=== PATIENT | male | born 1960 | race Caucasian/White ===

== ENCOUNTER 2017-11-08 22:56 | Emergency (ER) | payer OTHER ==
[~2017-11-08 22:56] MED LIST: AMLODIPINE BESY10 M1 PO; ASPIRIN EC325 M2 PO; DILTIAZEM ER120 M2 PO; ELIQUIS5 M1 PO; LISINOPRIL20 M1 PO; LISINOPRIL40 M1 PO; METOPROLOL SUC100 M2 PO; PROPAFENONE HC325 M1 PO
--- NOTE | 2017-11-08 23:37 | ED DYSPNEA/ASTHMA COMPLAINT ---
History of Present Illness General Chief Complaint: Chest Pain Stated Complaint: CHEST PAIN Source: patient, old records, Exam Limitations: no limitations Vital Signs & Intake/Output Vital Signs & Intake/Output Vital Signs Date Time Temp Pulse Resp B/P B/P Pulse O2 O2 Flow FiO2 Mean Ox Delivery Rate 11/09 0425 97.0 69 18 103/70 97 Room Air 11/09 0130 98.0 86 22 125/63 97 Room Air 11/09 0010 95 11/08 2349 97.9 80 22 110/69 97 Room Air 11/08 2302 97.2 88 22 130/82 96 ED Intake and Output 11/09 0000 11/08 1200 Intake Total 0 Output Total Balance 0 Intake, Oral 0 Patient 175 lb Weight Allergies Coded Allergies: NO KNOWN ALLERGIES (08/02/17) Reconcile Medications Albuterol Sulfate (Proair Hfa) 90 MCG HFA.AER.AD 2 INH INH Q6P PRN copd Apixaban (Eliquis) 5 MG TABLET 1 TAB PO BID BLOOD THINNER (Reported) Aspirin (Ecotrin*) 325 MG TABLET.DR 1 TAB PO DAILY HEART HEALTH (Reported) Diltiazem Cd (Diltiazem ER) 120 MG CAP.ER.DEG 120 MG PO DAILY Atrial Fibrillation . Lisinopril 20 MG TABLET 20 MG PO DAILY Hypertension . Metoprolol Succinate 100 MG TAB.ER.24H 1 TAB PO DAILY HIGH BLOOD PRESSURE ( Reported) Prednisone (Deltasone) 20 MG TABLET 3 TAB PO DAILY WHEEZING/copd BEGIN TOMORROW Triage Note: PER HAS HAD A COUGH AND CONGESTION X 24-48 HRS, STARTED WITH CP 30 MINUTES WOKE FROM SLEEP Triage Nurses Notes Reviewed? yes HPI: Patient presents for evaluation of dyspnea and chest congestion that began 2-3 days ago. He states that tonight symptoms became worse and so severe that he awoke from sleep short of breath. Denies any prior episodes like this. Although he did have symptoms consistent with a stomach virus on Wednesday for about 6-8 hours he currently denies fever, sinus congestion, nasal congestion, coughing, abdominal pain, vomiting, diarrhea or leg swelling/pain. Although he does not characterize chest pain he states that occasionally his chest feels heavy. There are number of ill contacts in the family recently. Patient denies cigarette smoking but does drink daily alcohol consisting of a 6 pack Past History Travel History Traveled to [place] past 21 day No Medical History Any Pertinent Medical History? 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 MOTHER (COPD and HTN). Hx Contributory? No Review of Systems Review of Systems Constitutional: Reports: no symptoms. EENTM: Reports: no symptoms. Respiratory: Reports: see HPI. Cardiovascular: Reports: no symptoms. GI: Reports: no symptoms. Genitourinary: Reports: no symptoms. Musculoskeletal: Reports: no symptoms. Skin: Reports: no symptoms. Neurological/Psychological: Reports: no symptoms. Hematologic/Endocrine: Reports: no symptoms. Immunologic/Allergic: Reports: no symptoms. All Other Systems: Reviewed and Negative Physical Exam Physical Exam Respiratory: SEE BELOW Comments: Gen.: Well-nourished, well-developed, mild respiratory distress. Thin. Head: Normocephalic, atraumatic. Eyes: Normal inspection bilaterally Ears: Normal inspection bilaterally Nose: Normal inspection, mild red discoloration Throat/mouth : Moist mucosa Neck: Supple, full range of motion, no goiter Heart: IRRegular rate and rhythm, no murmurs rubs or gallops Lungs: Clear to auscultation bilaterally with diminished air entry bilaterally Chest: Nontender Back: Normal range of motion Abdomen: Protuberant, nontender, no hepatomegaly normal bowel sounds Extremities: Normal range of motion grossly, equal radial pulses, no cyanosis clubbing or edema, calves nontender Neurologic: Cranial nerves grossly intact, speech is clear Skin: warm and dry Psychiatric: Calm, cooperative, no apparent delusions or hallucinations Core Measures ACS in differential dx? No CVA/TIA Diagnosis No Sepsis Present: No Sepsis Focused Exam Completed? No Progress Differential Diagnosis: asthma, AMI, CHF, COPD, pneumonia, unstable angina Plan of Care: Orders Procedure Date/time Status TROPONIN LEVEL 11/09 0345 Complete EKG 11/09 0345 Active Telemetry/[facility] And Hearing [facility] Director 01/01 2336 Active TROPONIN LEVEL 11/08 2335 Complete PROTHROMBIN TIME 11/08 2335 Complete MAGNESIUM 11/08 2335 Complete COMPREHENSIVE METABOLIC PANEL 11/08 2335 Complete CBC WITHOUT DIFFERENTIAL 11/08 2335 Complete B-TYPE NATRIURETIC PEP (BNP) 11/08 2335 Complete EKG 11/08 2256 Active Laboratory Tests 11/09/17 0405: Troponin I < 0.01 11/08/17 2345: Anion Gap 15, Estimated GFR > 60, BUN/Creatinine Ratio 12.9, Glucose 90, Calcium 8.8, Magnesium 1.3 L, Total Bilirubin 0.7, AST 37, ALT 45, Alkaline Phosphatase 74, Troponin I < 0.01, Oau-T-Kghzdefdqsw Pept 1490 H, Total Protein 6.6, Albumin 3.8, Globulin 2.8, Albumin/Globulin Ratio 1.4, PT 12.3, INR 1.17, CBC w Diff NO MAN DIFF REQ, RBC 4.70, MCV 95.7 H, MCH 31.7 H, RDW 17.6 H, MPV 8.7, Gran % 63.8, Lymphocytes % 19.8 L, Monocytes % 13.2 H, Eosinophils % 2.1, Basophils % 1.1, Absolute Granulocytes 3.4, Absolute Lymphocytes 1.1 L, Absolute Monocytes 0.7 H, Absolute Eosinophils 0.1, Absolute Basophils 0.1, PUBS MCHC 33.2 Diagnostic Imaging: Discussed w/RAD: Radiology Read. CXR Impression: PATIENT: QUENTIN MEDINA PRESENT AGE: 57 PATIENT ACCOUNT NO: [id number] : 58 LOCATION: [facility] ORDERING PHYSICIAN: Gopi Keenan MD SERVICE DATE: 11/08/17 EXAM TYPE: RAD - XRY-PORTABLE CHEST XRAY EXAMINATION: XR PORTABLE CHEST CLINICAL INFORMATION: Dyspnea, chest congestion. COMPARISON: Chest radiographs dated 08/02/2017. Rib radiographs dated 08/03/2017. TECHNIQUE: Portable frontal view of the chest was obtained. FINDINGS: No focal consolidation or effusion. Cardiomediastinal silhouette is within normal limits for technique. No pneumothorax. No acute osseous abnormalities. IMPRESSION: No focal consolidation or effusion. 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 <Electronically signed in Other Vendor System> SIGNED BY: Evan Mckeon MD 11/09/1735 Initial ED EKG: rate (96), AFIB, nonspecific ST T wave chg Prior EKG: unchanged Repeat EKG: unchanged Rhythm Strip: atrial fibrillation Comments: 11/09/2017 12:52:35 AM I have updated Quentin on his test results. Despite the nebulizer treatment he states his chest feels exactly the same as it did when he first arrived. His air entry is perhaps slightly improved he has no wheezes rales or rhonchi. Heart rate ranges from 80s to 90s on the monitor with an underlying atrial fibrillation as the rhythm. Given his persistent chest pain I will repeat an EKG and troponin and order a second albuterol and Solu-Medrol. 11/09/2017 5:17:22 AM I have updated Quentin on his test results. He feels well and has no complaint at this time. He wishes to return home. Departure Departure Disposition: HOME OR SELF CARE Condition: Stable Clinical Impression Primary Impression: COPD exacerbation Referrals: Florentino Wagoner MD (PCP/Family) Additional Instructions: Albuterol inhaler as prescribed for any trouble breathing or chest tightness. Prednisone as prescribed. Follow up with your primary care physician tomorrow for reevaluation. Rest, no exertion. Return if any concerns or sudden worsening. Please note that there might be incidental findings in your evaluation that are unrelated to the current emergency department visit. Please notify your primary care doctor about this emergency department visit in order to obtain and review all of the testing performed so that these incidental findings can be monitored as needed. If you had an x-ray performed, please understand that some fractures may not be seen on the initial set of x-rays. If your symptoms persist you might need a repeat set of x-rays to check for such a fracture. If you had a laceration evaluated, please understand that foreign bodies such as glass or wood may not be visible to the naked eye or on plain x-rays. If the wound becomes red, swollen, increasingly more painful or if there is any drainage from the wound, please have it reevaluated by a physician for the possibility of a retained foreign body. If you're unable to follow up as outlined in the discharge instructions please return to the emergency department. Thank you for choosing the [facility] Department for your care. It was a pleasure to serve you today. Gopi Keenan M.D. [facility] Departure Forms: Customer Survey General Discharge Information Prescriptions: Current Visit Scripts Albuterol Sulfate (Proair Hfa) 2 INH INH Q6P PRN copd #1 INHAL Prednisone (Deltasone) 3 TAB PO DAILY #12 TAB BEGIN TOMORROW Critical Care Note Critical Care Note Critical Care Time: 30-74 min
[2017-11-09 00:15] LABS: ABSOLUTE BASOPHIL COUNT 0.1 /CUMM (0.0-0.2); ABSOLUTE EOSINOPHIL COUNT 0.1 /CUMM (0.0-0.7); ABSOLUTE GRANULOCYTE CT 3.4 /CUMM (1.4-6.5); ABSOLUTE LYMPH COUNT 1.1 /CUMM (1.2-3.4); ABSOLUTE MONOCYTE COUNT 0.7 /CUMM (0.10-0.60); BASOPHIL % 1.1 % (0.0-2.0); EOSINOPHIL % 2.1 % (0-5); GRANULOCYTE % 63.8 % (42.2-75.2); MEAN CORPUSCULAR HGB 31.7 PG (27.0-31.0); MEAN CORPUSCULAR HGB CONC 33.2 G/DL (33.0-37.0); MEAN CORPUSCULAR VOLUME 95.7 FL (80.0-94.0); MEAN PLATELET VOLUME 8.7 FL (7.4-10.4); PLATELET COUNT 240 /CUMM (130-400); RBC DISTRIBUTION WIDTH 17.6 % (11.5-14.5); WHITE BLOOD CELL COUNT 5.3 /CUMM (4.8-10.8)
[2017-11-09 00:18] LABS: PT 12.3 SEC (9.4-12.5)
--- NOTE | 2017-11-09 00:36 | RADIOLOGY REPORT ---
EXAMINATION: XR PORTABLE CHEST CLINICAL INFORMATION: Dyspnea, chest congestion. COMPARISON: Chest radiographs dated 08/02/2017. Rib radiographs dated 08/03/2017. TECHNIQUE: Portable frontal view of the chest was obtained. FINDINGS: No focal consolidation or effusion. Cardiomediastinal silhouette is within normal limits for technique. No pneumothorax. No acute osseous abnormalities. IMPRESSION: No focal consolidation or effusion.
[2017-11-09 04:25] VITALS: BP 103/70
[2017-11-09] MEDS ORDERED: PROAIR HFA8.5 GM INH (05:20)
[2017-11-09] MEDS ORDERED: DELTASONE20 MG PO (05:20)
== END 2017-11-09 05:32 ==
LOC: ERH 22:56
PROVIDERS: Emergency Medicine
DX: J44.1 Chronic obstructive pulmonary disease with (acute) exacerbation (principal); R07.89 Other chest pain
CPT/HCPCS: 1263; 71045; 93005; 93010; 96374; J2930

== ENCOUNTER 2018-04-21 15:10 | Inpatient (IN) | payer OTHER ==
[~2018-04-21] VITALS: Ht 193 cm; Wt 84.8 kg
[~2018-04-21 15:10] MED LIST changes: +DELTASONE20 MG PO; +PROAIR HFA8.5 GM INH
[2018-04-21 15:27] VITALS: BP 149/100
[2018-04-21] MEDS ORDERED: DAILY MULTIPLE1 EACH PO (15:32)
[2018-04-21] MEDS ORDERED: SYMBICORT 16010.2 GM INH (15:33)
--- NOTE | 2018-04-21 15:33 | ED CARDIAC/CP/PALPITATIONS ---
See Addendum History of Present Illness General Chief Complaint: Chest Pain Stated Complaint: RAPID HEART RATE Source: patient, old records, PCP Exam Limitations: no limitations Vital Signs & Intake/Output Vital Signs & Intake/Output Vital Signs Date Time Temp Pulse Resp B/P B/P Pulse O2 O2 Flow FiO2 Mean Ox Delivery Rate 04/21 1704 114 18 137/95 97 Room Air 04/21 1615 108 116/82 04/21 1613 128 130/96 97 Room Air 04/21 1541 Room Air 04/21 1537 98.4 108 22 116/82 98 Room Air 04/21 1532 180 149/100 04/21 1530 180 22 149/101 98 Room Air 04/21 1527 180 149/100 Allergies Coded Allergies: No Known Allergies (04/21/18) Reconcile Medications Apixaban (Eliquis) 5 MG TABLET 1 TAB PO BID BLOOD THINNER (Reported) Aspirin (Ecotrin*) 325 MG TABLET.DR 1 TAB PO DAILY HEART HEALTH (Reported) Budesonide/Formoterol Fumarate (Symbicort 160-4.5 Mcg Inhaler) 160 MCG-4.5 MCG/ ACTUATION HFA.AER.AD 2 PUF INH BID BREATHING PROBLEMS (Reported) Diltiazem Cd (Diltiazem ER) 120 MG CAP.ER.DEG 120 MG PO DAILY Atrial Fibrillation . Lisinopril 20 MG TABLET 20 MG PO DAILY Hypertension . Metoprolol Succinate 100 MG TAB.ER.24H 1 TAB PO DAILY HIGH BLOOD PRESSURE ( Reported) Multivitamin (Daily Multiple Vitamin) 1 EACH TABLET 1 TAB PO DAILY VITAMIN SUPPORT (Reported) Triage Note: PT BROUGHT TO ED FROM DR. WHITE'S OFFICE (CARDIOLOGY) FOR SYMPTOMS OF "FEELING SHAKEY AND I FEEL LIKE I'M JUMPING OUT OF MY SKIN." PT NOTED TO BE VERY ANXIOUS, SHAKEY IN TRIAGE. PER EKG, RAPID AFIB WITH RATE 191. DENIES CHEST PAIN, +SOB. PER DR. WHITE'S OFFICE, HEAVY ALCOHOL USE. LAST DRINK YESTERDAY. REPORTS APPROX 6 BEERS A DAY Triage Nurses Notes Reviewed? yes HPI: Shortly after waking this morning patient felt like his heart rate began to race. Patient states that he has been compliant with his medications. Patient had a follow-up appointment with with Dr. Siegel today so he went to see him and he was found to be in A. fib with RVR at 180. Patient states that he does drink daily and his last drink was last night. Patient denies any history of withdrawal seizures. Patient states that usually when this time he would've had a beer. Patient denies any chest pain or shortness of breath. There is no lightheadedness. Patient was sent to the emergency department for evaluation. Past History Travel History Traveled to [place] past 21 day No Medical History Any Pertinent Medical History? 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 MOTHER (COPD and HTN). Hx Contributory? No Review of Systems Review of Systems Constitutional: Reports: no symptoms. EENTM: Reports: no symptoms. Respiratory: Reports: no symptoms. Cardiovascular: Reports: see HPI, palpitations. GI: Reports: no symptoms. Genitourinary: Reports: no symptoms. Musculoskeletal: Reports: no symptoms. Skin: Reports: no symptoms. Neurological/Psychological: Reports: no symptoms. Hematologic/Endocrine: Reports: no symptoms. Immunologic/Allergic: Reports: no symptoms. All Other Systems: Reviewed and Negative Physical Exam Physical Exam General Appearance: well developed/nourished, alert, awake, anxious Head: atraumatic, normal appearance Eyes: Bilateral: PERRL, EOMI. Ears, Nose, Throat: normal pharynx, normal ENT inspection, hearing grossly normal Neck: normal inspection, supple, full range of motion Respiratory: normal breath sounds, chest non-tender, no respiratory distress, lungs clear Cardiovascular: normal peripheral pulses, tachycardia, irregularly irregular Gastrointestinal: normal bowel sounds, soft, non-tender, no organomegaly Back: normal inspection, normal range of motion Extremities: normal inspection, normal capillary refill, normal range of motion, no edema Neurologic/Psych: no motor/sensory deficits, awake, alert, oriented x 3, normal gait, normal mood/affect Skin: intact, normal color, warm/dry Lymphatic: no anterior cervical brigid Core Measures ACS in differential dx? Yes CVA/TIA Diagnosis No Sepsis Present: No Sepsis Focused Exam Completed? No Progress Differential Diagnosis: AMI, atrial fibrillation, hyperthyroid, ALCOHOL WITHDRAWAL Plan of Care: Orders Procedure Date/time Status Heart Healthy Diet 04/22 B Active ED Holding Orders 04/21 1726 Active Admit to inpatient 04/21 1726 Active Vital Signs 04/21 1726 Active Code Status 04/21 1726 Active Add-on Test (ER Only) 04/21 1548 Active ETHANOL 04/21 1530 Complete CIWA 04/21 1526 Active TSH REFLEX 04/21 1526 Complete TROPONIN LEVEL 04/21 1526 Complete PHOSPHORUS 04/21 1526 Complete MAGNESIUM 04/21 1526 Complete CBC WITHOUT DIFFERENTIAL 04/21 1526 Complete BASIC METABOLIC PANEL 04/21 1526 Complete EKG 04/21 1512 Active Current Medications Sig/Jay Start time Last Medication Dose Stop Time Status Admin Diltiazem HCl 10 MG ONCE ONE 04/21 1715 UNVr (Cardizem) 04/21 1716 Diltiazem HCl 125 MG Q12H 04/21 1715 UNVr (Cardizem DRIP) Dextrose/Water 100 ML (D5W) Magnesium Sulfate 2 GM ONCE ONE 04/21 1615 AC 04/21 (Mag Sulfate in D5) 04/21 2014 165 Dextrose/Water 100 ML (D5W) Laboratory Tests 04/21/18 1530: Anion Gap 13, Estimated GFR > 60, BUN/Creatinine Ratio 6.3 L, Glucose 110 H, Calcium 9.7, Phosphorus 3.7, Magnesium 1.2 L, Troponin I < 0.01, TSH &T3 &Free T4 Intrp 2.640, CBC w Diff NO MAN DIFF REQ, RBC 4.55 L, MCV 98.3 H, MCH 34.1 H, MCHC 34.7, RDW 14.1, MPV 9.0, Gran % 69.1, Lymphocytes % 19.6 L, Monocytes % 9.7 H, Eosinophils % 1.1, Basophils % 0.5, Absolute Granulocytes 3.9, Absolute Lymphocytes 1.1 L, Absolute Monocytes 0.5, Absolute Eosinophils 0.1, Absolute Basophils 0, Serum Alcohol 12.0 Diagnostic Imaging: Viewed by Me: Radiology Read. Discussed w/RAD: Radiology Read. CXR Impression: SEE ABOVE Initial ED EKG: AFIB (WITH RVR), nonspecific ST T wave chg Prior EKG: changed Rhythm Strip: atrial fibrillation Comments: PATIENT: QUENTIN MEDINA PRESENT AGE: 57 PATIENT ACCOUNT NO: [id number] : 58 LOCATION: [facility] ORDERING PHYSICIAN: Ramandeep BERNAL SERVICE DATE: 04/21/18 EXAM TYPE: RAD - XRY-CHEST XRAY, TWO VIEWS EXAMINATION: XR CHEST CLINICAL INFORMATION: A. Fib COMPARISON: 11/08/2017 TECHNIQUE: 2 views of the chest were obtained. FINDINGS: No focal consolidation, pulmonary edema, or pleural effusion. Stable cardiomediastinal silhouette. IMPRESSION: Unremarkable examination. 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 <Electronically signed in Other Vendor System> SIGNED BY: Tony Chan MD 1634 Departure Departure Disposition: STILL A PATIENT Condition: Guarded Clinical Impression Primary Impression: Atrial fibrillation with RVR Referrals: Florentino Wagoner MD (PCP/Family) Departure Forms: Customer Survey General Discharge Information Admission Note Spoke With: Mariana Celestin MD Documentation of Exam: Documentation of any treatments & extenuating circumstances including Concerns Regarding Discharge (functional status, medication knowledge or non-compliance, living conditions, etc.) that warrant an admission rather than observation: [ ADMIT TO TELE, SADI GOMES, CARDIOLOGY CONSULT, FOLLOW CIWA CLOSELY, MAY REQUIRE ATIVAN] Critical Care Note Critical Care Note Critical Care Time: mins: (90 MIN)
[2018-04-21 15:45] LABS: ABSOLUTE BASOPHIL COUNT 0 /CUMM (0.0-0.2); ABSOLUTE EOSINOPHIL COUNT 0.1 /CUMM (0.0-0.7); ABSOLUTE GRANULOCYTE CT 3.9 /CUMM (1.4-6.5); ABSOLUTE LYMPH COUNT 1.1 /CUMM (1.2-3.4); ABSOLUTE MONOCYTE COUNT 0.5 /CUMM (0.10-0.60); BASOPHIL % 0.5 % (0.0-2.0); EOSINOPHIL % 1.1 % (0-5); GRANULOCYTE % 69.1 % (42.2-75.2); HEMATOCRIT 44.8 % (42-52); MEAN CORPUSCULAR HGB 34.1 PG (27.0-31.0); MEAN CORPUSCULAR HGB CONC 34.7 G/DL (33.0-37.0); MEAN CORPUSCULAR VOLUME 98.3 FL (80.0-94.0); PLATELET COUNT 162 /CUMM (130-400); RBC DISTRIBUTION WIDTH 14.1 % (11.5-14.5); RED BLOOD CELL CT 4.55 /CUMM (4.70-6.10); WHITE BLOOD CELL COUNT 5.6 /CUMM (4.8-10.8)
--- NOTE | 2018-04-21 16:35 | RADIOLOGY REPORT ---
EXAMINATION: XR CHEST CLINICAL INFORMATION: A. Fib COMPARISON: 11/08/2017 TECHNIQUE: 2 views of the chest were obtained. FINDINGS: No focal consolidation, pulmonary edema, or pleural effusion. Stable cardiomediastinal silhouette. IMPRESSION: Unremarkable examination.
--- NOTE | 2018-04-21 16:45 | Cons- Cardiology ---
Fermín Siegel MDneth 04/21/18 1635: General Information and HPI Consulting Request Date of Consult: 04/21/18 Requested By: ER physician/hospitalist Reason for Consult: Rapid atrial fibrillation Source of Information: patient, old records Exam Limitations: poor historian History of Present Illness: Benny Renee is a 57-year-old male with a history of hypertension, reasonably well controlled on 3 medications. He also has had 2 episodes of atrial fibrillation, both requiring cardioversion, the first in 04/2010 and the second in 03/2012. It was thought that his paroxysmal atrial fibrillation may have been related to excess alcohol intake, as he was a fairly heavy drinker. He has subsequently been able to cut down on his drinking and did not have any problems for a couple of years. I had not seen Benny for about 2 years, but he has continued to take the same medical regimen with amlodipine, lisinopril, metoprolol, and propafenone. He has been followed up regularly by Dr. Wagoner. However, at his visit to Dr. Wagoner in September 2016 he was noted to be in atrial fibrillation on an EKG at a rate of about 100. I subsequently saw him in the office and confirmed that he was in atrial fibrillation and his rate was reasonable. I recommended putting him on Eliquis and checking him in a month. He was totally unaware of his atrial fibrillation.. He did have his echo on 10/15/16 which showed normal LV function with mild left atrial dilatation and mild thickening of his mitral leaflets. Benny was cardioverted on 11/05/2016. He did convert to sinus rhythm but at his next office visit was back in atrial fibrillation. At that time, we decided that since he was totally asymptomatic we would leave him in atrial fibrillation and just use rate control strategy. At his visit in 06/2017 , Benny's rate was a little fast and I adjusted his medications. Subsequently he ended up being admitted to the hospital on 08/02/17 with rapid atrial fibrillation, and also alcohol withdrawal. He was in the hospital until 08/10/2017, mainly with withdrawal symptoms. We adjusted his medications for better rate control. At his office visit in August 2017, Benny was doing well. He claimed he was not drinking and he looked pretty good. His heart rate was in the 70s. I last saw him in the office on 12/20/2017. At that time he was looking pretty good, claimed not to be drinking much and was in rate controlled atrial fibrillation with normal blood pressure. Benny came to see me today for follow-up office visit. He came in looking very shaky and was extremely tachycardic with heart rate around 180 with atrial fibrillation. His blood pressure was normal and his pulse ox was normal. He had lost about 15 pounds. He claims to be drinking about 6 beers a day and had his last drink last night. Based on his appearance and EKG I sent him directly to the emergency department. He does claim to be compliant with his medications. So far in the ED he is very tachycardic and has been given Cardizem to slow his heart rate. His lab work is largely unremarkable except for low Mg. He has a low alcohol level consistent with not drinking today but drinking yesterday. Allergies/Medications Allergies: Coded Allergies: No Known Allergies (04/21/18) Home Med List: Apixaban (Eliquis) 5 MG TABLET 1 TAB PO BID BLOOD THINNER (Reported) Aspirin (Ecotrin*) 325 MG TABLET.DR 1 TAB PO DAILY HEART HEALTH (Reported) Budesonide/Formoterol Fumarate (Symbicort 160-4.5 Mcg Inhaler) 160 MCG-4.5 MCG/ ACTUATION HFA.AER.AD 2 PUF INH BID BREATHING PROBLEMS (Reported) Diltiazem Cd (Diltiazem ER) 120 MG CAP.ER.DEG 120 MG PO DAILY Atrial Fibrillation . Lisinopril 20 MG TABLET 20 MG PO DAILY Hypertension . Metoprolol Succinate 100 MG TAB.ER.24H 1 TAB PO DAILY HIGH BLOOD PRESSURE ( Reported) Multivitamin (Daily Multiple Vitamin) 1 EACH TABLET 1 TAB PO DAILY VITAMIN SUPPORT (Reported) Current Medications: Current Medications Sig/Jay Start time Last Medication Dose Route Stop Time Status Admin Diltiazem HCl 10 MG ONCE ONE 04/21 171 UNVr IV PUSH 04/21 171 Diltiazem HCl 125 MG Q12H 04/21 171 UNVr Dextrose/Water 100 ML IV Diltiazem HCl 10 MG ONCE ONE 04/21 1615 DC 04/21 IV PUSH 04/21 1616 1615 Diltiazem HCl 0 .STK-MED ONE 04/21 1537 DC .ROUTE Diltiazem HCl 10 MG ONCE ONE 04/21 1530 DC 04/21 IV 04/21 1531 1532 Magnesium Sulfate 2 GM ONCE ONE 04/21 1615 AC 04/21 Dextrose/Water 100 ML IV 04/21 2014 165 Sodium Chloride 1,000 ML BOLUS ONE 04/21 1530 DC 04/21 IV 04/21 1629 1532 Review of Systems Review of Systems: His main complaint is just feeling "shaky" Past History Travel History Traveled to [place] past 21 day No Medical History Neurological: NONE EENT: NONE Cardiovascular: AFIB, hypertension, CARDIOVERSION Respiratory: COPD Gastrointestinal: NONE Hepatic: NONE Renal: NONE Musculoskeletal: NONE Psychiatric: ETOH Endocrine: NONE Blood Disorders: NONE Cancer(s): NONE SUBSTANCE ABUSE 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 MOTHER (COPD and HTN). Psychosocial History Who Do You Live With? spouse Services at Home: None Primary Language: Mexican ETOH Use: heavy use Illicit Drug Use: denies illicit drug use Functional Ability ADLs Independent: dressing, eating, toileting, bathing. Ambulation: independent IADLs Independent: shopping, housework, finances, food prep, telephone, transportation , medication admin. Exam & Diagnostic Data Vital Signs and I&O Vital Signs Date Time Temp Pulse Resp B/P B/P Pulse O2 O2 Flow FiO2 Mean Ox Delivery Rate 04/21 1541 Room Air 04/21 1537 98.4 108 22 116/82 98 Room Air 04/21 1532 180 149/100 04/21 1530 180 22 149/101 98 Room Air 04/21 1527 180 149/100 Intake & Output 04/21 1600 04/21 0800 04/21 0000 04/20 1600 04/20 0800 04/20 0000 Intake Total 1000 Output Total Balance 1000 Intake, IV 1000 Physical Exam: Thin middle-aged man appearing very anxious and shaky put awake and alert. HEENT exam normal Chest clear Heart irregular rhythm, markedly tachycardic, no murmurs Abdomen benign Extremities no edema Labs/Oj Results: Laboratory Tests 04/21 1530 Chemistry Sodium (137 - 145 mmol/L) 137 Potassium (3.5 - 5.1 mmol/L) 4.7 Chloride (98 - 107 mmol/L) 96 L Carbon Dioxide (22 - 30 mmol/L) 28 Anion Gap (5 - 16) 13 BUN (9 - 20 mg/dL) 5 L Creatinine (0.7 - 1.2 mg/dL) 0.8 Estimated GFR (>60 ml/min) > 60 BUN/Creatinine Ratio (7 - 25 %) 6.3 L Glucose (65 - 99 mg/dL) 110 H Calcium (8.4 - 10.2 mg/dL) 9.7 Phosphorus (2.5 - 4.5 mg/dL) 3.7 Magnesium (1.6 - 2.3 mg/dL) 1.2 L Troponin I (<0.11 ng/ml) < 0.01 TSH &T3 &Free T4 Intrp (0.27 - 4.20 uIU/mL) Pending Hematology CBC w Diff NO MAN DIFF REQ WBC (4.8 - 10.8 /CUMM) 5.6 RBC (4.70 - 6.10 /CUMM) 4.55 L Hgb (14.0 - 18.0 G/DL) 15.5 Hct (42 - 52 %) 44.8 MCV (80.0 - 94.0 FL) 98.3 H MCH (27.0 - 31.0 PG) 34.1 H MCHC (33.0 - 37.0 G/DL) 34.7 RDW (11.5 - 14.5 %) 14.1 Plt Count (130 - 400 /CUMM) 162 MPV (7.4 - 10.4 FL) 9.0 Gran % (42.2 - 75.2 %) 69.1 Lymphocytes % (20.5 - 51.1 %) 19.6 L Monocytes % (1.7 - 9.3 %) 9.7 H Eosinophils % (0 - 5 %) 1.1 Basophils % (0.0 - 2.0 %) 0.5 Absolute Granulocytes (1.4 - 6.5 /CUMM) 3.9 Absolute Lymphocytes (1.2 - 3.4 /CUMM) 1.1 L Absolute Monocytes (0.10 - 0.60 /CUMM) 0.5 Absolute Eosinophils (0.0 - 0.7 /CUMM) 0.1 Absolute Basophils (0.0 - 0.2 /CUMM) 0 Toxicology Serum Alcohol (<10 MG/DL) 12.0 Diagnostic Data EKG Results Atrial fibrillation rate 175, probable LVH, diffuse nonspecific ST-T wave abnormalities. CXR Results Chest x-ray does not show congestive heart failure. Lungs are hyperexpanded. Assessment/Plan Assessment/Plan Benny presents with very rapid atrial fibrillation. I suspect he has been drinking heavily and is probably withdrawing. Alternative explanation would be hyperthyroidism, which might account for the weight loss and shakiness. However , his last thyroid function tests last year were normal. I recommend continuing him on Cardizem for rate control. If we cannot give IV Cardizem drip then IV verapamil or p.o. Cardizem might be alternatives. We could also use IV beta-blockers. I would replace his magnesium, which is slightly low. Obviously we will put him on a CIWA protocol. I would obtain an echocardiogram which he last had over 6 months ago. Consult Acknowledgment - Thank you for your consult request. Ed Parnell MD 04/21/18 8652: Assessment/Plan Consult Acknowledgment - Thank you for your consult request.
[2018-04-21 17:00] VITALS: BP 144/90
--- NOTE | 2018-04-21 17:39 | History & Physical ---
Rodrigo MONTES,[facility] 04/21/18 1739: General Information and HPI MD Statement: I have seen and personally examined QUENTIN MEDINA and documented this H&P. The patient is a 57 year old M who presented with a patient stated chief complaint of []. Source of Information: patient, old records Exam Limitations: poor historian History of Present Illness: The patient is a 57-year-old gentleman with past medical history of hypertension , COPD not on any home oxygen and atrial fibrillation diagnosed about 10 years ago on Eliquis status post cardioversion in 2009, 2011 and 2015. The patient presented to [facility] ED on 04/21 with a complaint of very fast heart rate. The patient stated that he is in usual state of health without any complaints. He sees his maxillofacial pathology and his primary care doctor twice a year. Today he had an appointment with his PCP Dr. Wagoner. In his office the patient heart rate was very high and he advised the patient to go to his maxillofacial pathology Dr. Siegel, where an EKG and patient was found to be in atrial fibrillation with RVR with heart rate of 180. Dr. Siegel recommended the patient to go to [facility] to be admitted. He reported chest discomfort in the middle of chest 2 out of 10 not the pressure just a discomfort feeling of having a cold. Nonradiating on with no aggravating or relieving factor. He states that he is not having any palpitations. He is unaware of his heartbeat. Patient denies any recent fevers chills, cough or sputum production, no nausea, vomiting or diarrhea, or any urinary symptoms. He denies any weight loss or night sweats. He is pretty active during the day and does a lot of yard work. Without any symptoms. He does not know why he is being admitted by despite being feeling fine The patient reported he has been laid off for since past 6 month and is currently unemployed. He is a former smoker who used to smoke 2 packs for past 20 years and quit in 2000. He reported drinking 6 packs every day takes more on the weekend. He denies drinking any hard liquor. His last drink was around 10 PM yesterday. The patient's last admission was in 07/25 for similar complaints. The patient was extremely anxious during the encounter Allergies/Medications Allergies: Coded Allergies: No Known Allergies (04/21/18) Home Med list Apixaban (Eliquis) 5 MG TABLET 1 TAB PO BID BLOOD THINNER (Reported) Aspirin (Ecotrin*) 325 MG TABLET.DR 1 TAB PO DAILY HEART HEALTH (Reported) Budesonide/Formoterol Fumarate (Symbicort 160-4.5 Mcg Inhaler) 160 MCG-4.5 MCG/ ACTUATION HFA.AER.AD 2 PUF INH BID BREATHING PROBLEMS (Reported) Diltiazem Cd (Diltiazem ER) 120 MG CAP.ER.DEG 120 MG PO DAILY Atrial Fibrillation . Lisinopril 20 MG TABLET 20 MG PO DAILY Hypertension . 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 MOTHER (COPD and HTN). Psychosocial History Where do you live? Home Who Do You Live With? spouse Services at Home: None Primary Language: Moroccan Smoking Status: Former Smoker ETOH Use: heavy use Illicit Drug Use: denies illicit drug use Functional Ability ADLs Independent: dressing, eating, toileting, bathing. Ambulation: independent IADLs Independent: shopping, housework, finances, food prep, telephone, transportation , medication admin. Review of Systems Review of Systems Constitutional: Reports: see HPI. Exam & Diagnostic Data Last 24 Hrs of Vital Signs/I&O Vital Signs Date Time Temp Pulse Resp B/P B/P Pulse O2 O2 Flow FiO2 Mean Ox Delivery Rate 04/21 1826 99 04/21 1826 98.0 124 16 145/84 99 Room Air 04/21 1817 68 135/92 04/21 1802 98.6 68 18 135/92 96 04/21 1704 114 18 137/95 97 Room Air 04/21 1700 99.0 95 18 144/90 97 Room Air 04/21 1615 108 116/82 04/21 1613 128 130/96 97 Room Air 04/21 1541 Room Air 04/21 1537 98.4 108 22 116/82 98 Room Air 04/21 1532 180 149/100 04/21 1530 180 22 149/101 98 Room Air 04/21 1527 180 149/100 Intake & Output 04/21 1600 04/21 0800 04/21 0000 Intake Total 1000 Output Total Balance 1000 Intake, IV 1000 Physical Exam General Appearance Alert, Oriented X3, Cooperative, anxious HEENT Atraumatic, PERRLA, EOMI Neck Supple, No JVD Cardiovascular irregular, tachycardic Lungs Clear to Auscultation, Normal Air Movement Abdomen Normal Bowel Sounds, Soft, No Tenderness Neurological Normal Speech Extremities No Edema Last 24 Hrs of Labs/Oj: Laboratory Tests 04/21/18 1530: Anion Gap 13, Estimated GFR > 60, BUN/Creatinine Ratio 6.3 L, Glucose 110 H, Calcium 9.7, Phosphorus 3.7, Magnesium 1.2 L, Troponin I < 0.01, TSH &T3 &Free T4 Intrp 2.640, CBC w Diff NO MAN DIFF REQ, RBC 4.55 L, MCV 98.3 H, MCH 34.1 H, MCHC 34.7, RDW 14.1, MPV 9.0, Gran % 69.1, Lymphocytes % 19.6 L, Monocytes % 9.7 H, Eosinophils % 1.1, Basophils % 0.5, Absolute Granulocytes 3.9, Absolute Lymphocytes 1.1 L, Absolute Monocytes 0.5, Absolute Eosinophils 0.1, Absolute Basophils 0, Serum Alcohol 12.0 Diagnostic Data EKG Results Atrial fibrillation rate 175, probable LVH, diffuse nonspecific ST-T wave abnormalities. CXR Results Chest x-ray does not show congestive heart failure. Lungs are hyperexpanded. Assessment/Plan Assessment: The patient is a 57-year-old gentleman with past medical history of hypertension , COPD not on any home oxygen and atrial fibrillation on Eliquis status post cardioversion in 2009,2011 and 2015. The patient presented to [facility] ED on after being sent in by Dr. Siegel for evaluation of atrial fibrillation with RVR. Vitals on presentation were significant for heart rate of 180, and blood pressure of 149/100 Admission labs are significant for macrocytosis with MCV 98.3 and MCH 34.1, first set of troponins were negative and magnesium was 1.2 In the ED patient received 10 mg IV push of Cardizem and was started on Cardizem drip The patient is being admitted to telemetry floor for treatment and evaluation of following conditions #Atrial fibrillation with rapid ventricular rate Patient was diagnosed about 10 years ago and is on Eliquis currently. He had cardioversion done in 2009, 2011 and 2015, with return to normal sinus rhythm. Today he is extremely shaky and presenting with heart rate of 180 in atrial fibrillation with RVR. -Telemetry monitoring for any arrhythmia -We will continue the Cardizem drip with a goal heart rate of less than 110 -Titrate the drip down according to the heart rate -Continue metoprolol and Eliquis -Cardiology consult -Serial troponins and EKG -Echocardiogram -Check TSH and free T4 #Hypomagnesemia He presented with the magnesium of 1.2 and was given 1 dose of 2 g of magnesium sulfate in ED -Monitor BEP -Repleted as needed #Alcohol abuse/withdrawal Patient drinks 6 packs of beer everyday last drink was around 10 PM yesterday night. He is very anxious right now and jittery. we will monitor closely. -CIWA protocol -Ativan when necessary -Multivitamin -Thiamine #Macrocytosis Most likely secondary to alcohol abuse -Alcohol cessation counseling -Check B12 and folate #History of COPD -TRC -continue symbicort #Continue aspirin, metoprolol, lisinopril Heart healthy diet/DVT prophylaxis with Eliquis and alps/full code As Ranked By This Provider Problem List: 1. Atrial fibrillation with RVR 2. Alcohol abuse Core Measures/Misc (07/25) Acute Coronary Syndrome ACS Diagnosis: No Congestive Heart Failure Congestive Heart Failure Diagnosis No Cerebrovascular Accident CVA/TIA Diagnosis: No VTE (View Protocol) VTE Risk Factors Age>40 No Mechanical VTE Prophylaxis d/t N/A MechProphylax Ordered No VTE Pharm Prophylaxis d/t NA PharmProphylax ordered Sepsis (View protocol) Sepsis Present: No If YES complete Sepsis Event Note If YES complete Sepsis Event Note Demarco Obando 04/21/18 1754: Core Measures/Misc (07/25) Sepsis (View protocol) If YES complete Sepsis Event Note If YES complete Sepsis Event Note Resident Review Statement Resident Statement: examined this patient, discussed with internal medicine specialist, agreed with internal medicine specialist, reviewed EMR data (avail), reviewed images Other Findings: 57 year old gentleman former smoker with past medical history significant for AUD, hypertension, COPD not on any home oxygen and atrial fibrillation on Eliquis status post cardioversion in 2009, 2011, 2016. Last admission to [facility] was on 08/02 for A fib with RVR. Today he went for his usual check up to his PCP and his PCP sent him to Dr. Siegel as his HR was noted to be rapid. On interview patient states that he felt fine and has not noticed anything different. Reports chest discomfort midsternal 2/10, non radiating, simillar to having chest congestion. Denies chest pain on excertion, shortness of breath, dizziness, syncope, headache, uri symptoms or bowel/bladder symptoms. Reports compliance with his medications. Drinks 6 beers /day with his last drink was last night. In ED he was found to be in Afib with RVR. BP 149/100-->137/95, Examination as above. CBC unremarkable. BEP shows Hypomag 1.2. Trop 0.01. TFT wnl. Utox pending , serum alcohol 12.0 ED course: given 3 boluses of IV cardiazem 10mg, started on IV cardiazem drip last Echo 08/03/17 EF >65% Normal global left ventricular size, wall thickness, systolic function with no obvious regional wall motion abnormalities. Assessment: Afib with RVR likely secondary to alcohol use problem list: AFib with RVR hypertension hypothyroidism Alcohol use disorder plan: admit to tele floor for continuous cardiac monitoring Continue IV cardiazem current at rate of 5mg/hr trend trop/EKG to r/o ACS Echocardiogram Dr. Leon on board TRC eval, continue symbicort Place on CIWA protocol, PO thiamin and MVI Continue home meds of lisinopril, metoprolol,ASA. dvt ppx eliquis heart healthy diet full code Pasha Steen 04/22/18 0537: Core Measures/Misc (07/25) Sepsis (View protocol) If YES complete Sepsis Event Note If YES complete Sepsis Event Note Attending MD Review Statement Attending Statement Attending MD Statement: examined this patient, discuss w/resident/PA/EVENT SERVICES MANAGER, agreed w/resident/PA/EVENT SERVICES MANAGER, reviewed EMR data (avail), reviewed images, amended to note Attending Assessment/Plan: CC: A. fib with RVR PMH: COPD, history of A. fib, S/P several cardioversion, HTN Patient was following up with primary care physician as a routine visit where he was found to have A. fib with RVR so he was sent to be seen by a maxillofacial pathology. He was sent to ER from maxillofacial pathology office for persistently elevated heart rate. Patient does not have any complaints but states that he has nasal congestion discharge and mild chest congestion since last 1 week. He denies any chest pain chest discomfort chest tightness palpitation dizziness blurry vision double vision. History significant for alcohol, last drink last night. Vitals: Temperature 98.4, pulse 180, RR 22, blood pressure 149/100, saturating 96% on room air. On exam: A O 3, cooperative, very anxious and tremulous, skin is flushed, neck supple, JVD normal, no lymphadenopathy, mucosa moist, no focal neurological deficit, no dependent edema, no obvious skin rashes or inflammation CVS: S1-S2, irregular. RS: Clear to auscultate bilaterally. Abdomen: Soft, NT, ND, bowel sounds present. CXR: Unremarkable examination. Assessment and plan 57-year-old male with above-mentioned past medical history presented in ER from primary care office for A. fib with RVR. Patient has history of A. fib and had cardioverted several times in the past. Patient was seen by maxillofacial pathology today. At arrival, in ER his heart rate was in 180s, blood pressure is stable, no JVD or crackles on auscultation. Patient's TSH is normal range. His alcohol intake or withdrawal or recent viral infection with upper respiratory and chest congestion may have precipitated his A. fib with RVR. Patient's rate improved with IV Cardizem will continue the same. + A. fib with RVR + History of COPD, history of A. fib, S/P several cardioversion, HTN, alcohol abuse - Admit to telemetry - Continue Cardizem drip , titrate to heart rate 110 or lower - Closely watch for blood pressure - Serial troponin's and ECGs - echocardiogram as suggested by cardiology - Follow cardiology recommendation - When necessary Ativan according to CIWA score - Replete thiamine and folic acid - Continue home doses of lisinopril and metoprolol Eliquis on Symbicort
[2018-04-21 19:00] VITALS: BP 144/90
[2018-04-21 22:40] VITALS: BP 144/86
[2018-04-22] VITALS (11 sets, daily range): BP systolic 112–168; BP diastolic 64–98
--- NOTE | 2018-04-22 05:38 | Admission Certification ---
Admission Certification Certification Statement - As attending physician, I certify that at the time of - admission, based on clinical presentation, severity of - symptoms, need for further diagnostic testing and - therapeutic interventions, and risk of adverse outcomes - without in-hospital treatment, in my clinical assessment, - this patient requires an acute hospital stay for a minimum - of two nights or longer. I have also considered psychsocial - factors such as support system, advanced age, financial - issues, cognitive issues, and failed out-patient treatments, - past re-admission history, safety of patient, and lack of - compliance as applicable. Specific rationale supporting this admission is: A. fib with RVR
--- NOTE | 2018-04-22 07:53 | PN- Housestaff ---
Rodrigo MONTES,Deedee 04/22/18 0753: Subjective Follow-up For: Atrial fibrillation with RVR Tele-Events Since Last Visit: Atrial fibrillation with heart rate going up to 190s with slight movement Subjective: Seen and examined. Anxious. Does not want to stay in hospital. Agitated Review of Systems Constitutional: Reports: see HPI. Objective Last 24 Hrs of Vital Signs/I&O Vital Signs Date Time Temp Pulse Resp B/P B/P Pulse O2 O2 Flow FiO2 Mean Ox Delivery Rate 04/22 0756 98.4 118 18 138/78 04/22 0600 119 04/22 0600 98.4 118 18 138/78 94 04/22 0451 117 04/22 0400 81 04/22 0300 113 04/22 0239 98.0 98 22 132/88 97 Room Air 04/22 0200 95 04/22 0000 89 04/21 2240 99.2 133 22 144/86 97 Room Air 04/21 2200 112 04/21 1900 99.0 95 18 144/90 97 Room Air 04/21 1826 99 04/21 1826 98.0 124 16 145/84 99 Room Air 04/21 1817 68 135/92 04/21 1802 98.6 68 18 135/92 96 04/21 1704 114 18 137/95 97 Room Air 04/21 1615 108 116/82 04/21 1613 128 130/96 97 Room Air 04/21 1541 Room Air 04/21 1537 98.4 108 22 116/82 98 Room Air 04/21 1532 180 149/100 04/21 1530 180 22 149/101 98 Room Air 04/21 1527 180 149/100 Intake & Output 04/22 1600 04/22 0800 04/22 0000 Intake Total 760 500 Output Total 300 Balance 760 200 Intake, IV 40 20 Intake, Oral 720 480 Number 0 Bowel Movements Output, Urine 300 Patient 181 lb Weight Weight Reported by Patient Measurement Method Physical Exam General Appearance: Alert, Oriented X3 Cardiovascular: irregular, tachy Lungs: Clear to Auscultation Abdomen: Soft Neurological: Normal Speech Current Medications: Current Medications Sig/Jay Start time Last Medication Dose Route Stop Time Status Admin Apixaban 5 MG BID 04/21 2100 AC 04/21 PO 204 Aspirin Buffered 325 MG DAILY 04/22 0900 AC PO Budesonide/ 2 PUF BID 04/21 2100 AC 04/21 Formoterol Fumarate INH 2042 Diltiazem HCl 125 MG Q24H 04/22 1300 AC Dextrose/Water 100 ML IV Diltiazem HCl 10 MG ONCE ONE 04/21 1815 CAN IV PUSH 04/21 1816 Diltiazem HCl 125 MG Q24H 04/21 1815 DC Dextrose/Water 100 ML IV Diltiazem HCl 0 .STK-MED ONE 04/21 1746 DC .ROUTE Diltiazem HCl 10 MG ONCE ONE 04/21 1715 DC 04/21 IV PUSH 04/21 1716 1817 Diltiazem HCl 125 MG Q12H 04/21 1715 DC 04/21 Dextrose/Water 100 ML IV 04/22 1259 1817 Diltiazem HCl 10 MG ONCE ONE 04/21 1615 DC 04/21 IV PUSH 04/21 1616 1615 Diltiazem HCl 0 .STK-MED ONE 04/21 1537 DC .ROUTE Diltiazem HCl 10 MG ONCE ONE 04/21 1530 DC 04/21 IV 04/21 1531 1532 Folic Acid 1 MG DAILY 04/22 0900 AC PO Lisinopril 20 MG DAILY 04/22 0900 AC PO Lorazepam 2 MG Q4 04/22 1000 AC PO Lorazepam 0 Q1P PRN 04/21 1900 AC 04/22 IV 0659 Magnesium Oxide 400 MG ONE ONE 04/22 0015 DC 04/22 PO 04/22 0016 0226 Magnesium Sulfate 2 GM ONCE ONE 04/21 1615 DC 04/21 Dextrose/Water 100 ML IV 04/21 2014 1651 Metoprolol Succinate 100 MG DAILY 04/22 0900 AC PO Multivitamins 1 TAB DAILY 04/22 0900 AC Therapeutic PO Sodium Chloride 1,000 ML BOLUS ONE 04/21 1530 DC 04/21 IV 04/21 1629 1532 Thiamine HCl 100 MG DAILY 04/22 0900 CAN PO Thiamine HCl 100 MG DAILY 04/21 1915 AC 04/21 PO 2042 Thiamine HCl 100 MG DAILY 04/21 191 CAN PO Last 24 Hrs of Lab/Oj Results Last 24 Hrs of Labs/Mics: Laboratory Tests 04/22/18 0603: Anion Gap 11, Estimated GFR > 60, BUN/Creatinine Ratio 7.1, CBC w Diff Pending, WBC Pending, RBC Pending, Hgb Pending, Hct Pending, MCV Pending, MCH Pending, MCHC Pending, RDW Pending, Plt Count Pending, MPV Pending, Gran % Pending, Lymphocytes % Pending, Monocytes % Pending, Eosinophils % Pending, Basophils % Pending, Absolute Granulocytes Pending, Absolute Lymphocytes Pending, Absolute Monocytes Pending, Absolute Eosinophils Pending, Absolute Basophils Pending 04/22/18 0230: Troponin I < 0.01 04/21/18 2240: Urine Opiates Screen < 100, Methadone Screen < 40, Barbiturate Screen < 60, Ur Phencyclidine Scrn < 6.00, Amphetamines Screen < 100, U Benzodiazepines Scrn < 85, Urine Cocaine Screen < 50, Urine Cannabis Screen < 5.00 04/21/18 2110: Magnesium 1.6, Troponin I < 0.01 04/21/18 1530: Anion Gap 13, Estimated GFR > 60, BUN/Creatinine Ratio 6.3 L, Glucose 110 H, Calcium 9.7, Phosphorus 3.7, Magnesium 1.2 L, Troponin I < 0.01, TSH &T3 &Free T4 Intrp 2.640, CBC w Diff NO MAN DIFF REQ, RBC 4.55 L, MCV 98.3 H, MCH 34.1 H, MCHC 34.7, RDW 14.1, MPV 9.0, Gran % 69.1, Lymphocytes % 19.6 L, Monocytes % 9.7 H, Eosinophils % 1.1, Basophils % 0.5, Absolute Granulocytes 3.9, Absolute Lymphocytes 1.1 L, Absolute Monocytes 0.5, Absolute Eosinophils 0.1, Absolute Basophils 0, Serum Alcohol 12.0 Assessment/Plan Assessment: The patient is a 57-year-old gentleman with past medical history of hypertension , COPD not on any home oxygen and atrial fibrillation on Eliquis status post cardioversion in 2009,2011 and 2015. The patient presented to [place] ED on after being sent in by Dr. Siegel for evaluation of atrial fibrillation with RVR. Vitals on presentation were significant for heart rate of 180, and blood pressure of 149/100 Admission labs are significant for macrocytosis with MCV 98.3 and MCH 34.1, first set of troponins were negative and magnesium was 1.2 In the ED patient received 10 mg IV push of Cardizem and was started on Cardizem drip The patient is being admitted to telemetry floor for treatment and evaluation of following conditions #Atrial fibrillation with rapid ventricular rate Patient was diagnosed about 10 years ago and is on Eliquis currently. He had cardioversion done in 2009, 2011 and 2015, with return to normal sinus rhythm. Today he is extremely shaky and presenting with heart rate of 180 in atrial fibrillation with RVR, in the context of excessive alcohol consumption. Serial EKG and troponins are negative -Telemetry monitoring for any arrhythmia -We are going to discontinue the Cardizem drip and start him on 30 mg PO Q 4 -Continue metoprolol and Eliquis -Cardiology recommendations appreciated -Echocardiogram pending #Hypomagnesemia-resolved He presented with the magnesium of 1.2 and was given 1 dose of 2 g of magnesium sulfate in ED. continue oral supplementation #Alcohol abuse/withdrawal Patient drinks 6 packs of beer everyday last drink was around 10 PM on 04/20. He is very anxious right now and jittery. we will monitor closely. He received 6 mg of IV Ativan in 4 hours from 6 AM to 8 AM. He was initially on PRN Ativan. Was started on 2 mg every 6h was found to be 6 extensively drowsy hence we are going to maintain him --on 1 mg Q6 Ativan -CIWA protocol -Multivitamin and Thiamine #Macrocytosis Most likely secondary to alcohol abuse -Alcohol cessation counseling -Check B12 and folate #History of COPD -[facility] -continue symbicort #Continue aspirin, metoprolol, lisinopril Heart healthy diet/DVT prophylaxis with Eliquis and alps/full code Problem List: 1. Alcohol abuse 2. Atrial fibrillation with RVR Pain Ratin Pain Location: na Pain Goal: Pain 4 or less Pain Plan: prn Tomorrow's Labs & Rationales: cbc bep Dimitry Diego MD 04/22/18 1228: Attending MD Review Statement Attending Statement Attending MD Statement: examined this patient, discuss w/resident/PA/SENIOR COMMUNICATIONS SPECIALIST, agreed w/resident/PA/SENIOR COMMUNICATIONS SPECIALIST, reviewed EMR data (avail) Attending Assessment/Plan: 57M PMH COPD, history of A. 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 Concern for possible withdrawal from alcohol so placed on standing Ativan and CIWA, patient is sleepy and lethargic today. 1. Rapid atrial fibrillation with RVR 2. Alcohol use disorder 3. Hypomagnesemia Plan - Continue on telemetry - Discontinue Cardizem drip, start PO - Would decrease Ativan to 1mg q6h with instructions to hold for sedation - Ativan PRN CIWA - Follow cardiology recommendations - Replete magnesium - Continue home medications - DVT PPx - Potential weekend discharge if HR is controlled and no withdrawal symptoms
[2018-04-22 07:57] LABS: ABSOLUTE BASOPHIL COUNT 0 /CUMM (0.0-0.2); ABSOLUTE EOSINOPHIL COUNT 0.1 /CUMM (0.0-0.7); ABSOLUTE LYMPH COUNT 0.7 /CUMM (1.2-3.4); ABSOLUTE MONOCYTE COUNT 0.2 /CUMM (0.10-0.60); BASOPHIL % 0.3 % (0.0-2.0); EOSINOPHIL % 1.2 % (0-5); GRANULOCYTE % 83.4 % (42.2-75.2); HEMATOCRIT 39.9 % (42-52); MEAN CORPUSCULAR HGB 34.2 PG (27.0-31.0); MEAN CORPUSCULAR HGB CONC 34.5 G/DL (33.0-37.0); MEAN CORPUSCULAR VOLUME 99.2 FL (80.0-94.0); MEAN PLATELET VOLUME 9.7 FL (7.4-10.4); PLATELET COUNT 123 /CUMM (130-400); RED BLOOD CELL CT 4.02 /CUMM (4.70-6.10)
--- NOTE | 2018-04-22 09:57 | PN- Cardiology ---
Subjective Subjective: 57 year old patient admitted yesterday due to symptomtic rapid afib, sent directly from Dr Siegel' office. Has been intermittently confused since admission. Sleeping and difficult to arouse. HR is mostly 75-110 when lying in bed, but easily rises to 180 with minimal effort ( going to the bathroom, walking in the room ). Discussed with patient's . Objective Vital Signs and I&Os Vital Signs Date Time Temp Pulse Resp B/P B/P Pulse O2 O2 Flow FiO2 Mean Ox Delivery Rate 04/22 0756 98.4 118 18 138/78 04/22 0600 119 04/22 0600 98.4 118 18 138/78 94 04/22 0451 117 04/22 0400 81 04/22 0300 113 04/22 0239 98.0 98 22 132/88 97 Room Air 04/22 0200 95 04/22 0000 89 04/21 2240 99.2 133 22 144/86 97 Room Air 04/21 2200 112 04/21 1900 99.0 95 18 144/90 97 Room Air 04/21 1826 99 04/21 1826 98.0 124 16 145/84 99 Room Air 04/21 1817 68 135/92 04/21 1802 98.6 68 18 135/92 96 04/21 1704 114 18 137/95 97 Room Air 04/21 1615 108 116/82 04/21 1613 128 130/96 97 Room Air 04/21 1541 Room Air 04/21 1537 98.4 108 22 116/82 98 Room Air 04/21 1532 180 149/100 04/21 1530 180 22 149/101 98 Room Air 04/21 1527 180 149/100 Intake & Output 04/22 1600 04/22 0800 04/22 0000 04/21 1600 04/21 0800 04/21 0000 Intake Total 540 394 6366 Output Total 300 Balance 927 385 4162 Intake, IV 40 20 1000 Intake, Oral 720 480 Number 0 Bowel Movements Output, Urine 300 Patient 181 lb Weight Weight Reported by Patient Measurement Method Physical Exam General Appearance: lethargic Neck: normal inspection, supple Respiratory: normal breath sounds, no respiratory distress, quiet respiration, lungs clear Cardiovascular: normal peripheral pulses, irregularly irregular Abdomen: normal bowel sounds, soft, non-tender Extremities: normal inspection, normal capillary refill, no edema Current Medications: Current Medications Sig/Jay Start time Last Medication Dose Route Stop Time Status Admin Apixaban 5 MG BID 04/21 2100 AC 04/21 PO 2042 Aspirin Buffered 325 MG DAILY 04/22 0900 AC PO Budesonide/ 2 PUF BID 04/21 2100 AC 04/21 Formoterol Fumarate INH 2042 Diltiazem HCl 125 MG Q24H 04/22 1300 AC Dextrose/Water 100 ML IV Diltiazem HCl 10 MG ONCE ONE 04/21 1815 CAN IV PUSH 04/21 1816 Diltiazem HCl 125 MG Q24H 04/21 1815 DC Dextrose/Water 100 ML IV Diltiazem HCl 0 .STK-MED ONE 04/21 1746 DC .ROUTE Diltiazem HCl 10 MG ONCE ONE 04/21 1715 DC 04/21 IV PUSH 04/21 1716 1817 Diltiazem HCl 125 MG Q12H 04/21 1715 DC 04/21 Dextrose/Water 100 ML IV 04/22 1259 1817 Diltiazem HCl 10 MG ONCE ONE 04/21 1615 DC 04/21 IV PUSH 04/21 1616 1615 Diltiazem HCl 0 .STK-MED ONE 04/21 1537 DC .ROUTE Diltiazem HCl 10 MG ONCE ONE 04/21 1530 DC 04/21 IV 04/21 1531 1532 Folic Acid 1 MG DAILY 04/22 0900 AC PO Lisinopril 20 MG DAILY 04/22 0900 AC PO Lorazepam 2 MG Q4 04/22 1000 AC PO Lorazepam 0 Q1P PRN 04/21 1900 AC 04/22 IV 0659 Magnesium Oxide 400 MG ONE ONE 04/22 0015 DC 04/22 PO 04/22 0016 0226 Magnesium Sulfate 2 GM ONCE ONE 04/21 1615 DC 04/21 Dextrose/Water 100 ML IV 04/21 2014 1651 Metoprolol Succinate 100 MG DAILY 04/22 0900 AC PO Multivitamins 1 TAB DAILY 04/22 0900 AC Therapeutic PO Sodium Chloride 1,000 ML BOLUS ONE 04/21 1530 DC 04/21 IV 04/21 1629 1532 Thiamine HCl 100 MG DAILY 04/22 0900 CAN PO Thiamine HCl 100 MG DAILY 04/21 1915 AC 04/21 PO 2042 Thiamine HCl 100 MG DAILY 04/21 191 CAN PO Results Last 48 Hrs of Labs/Mics: Laboratory Tests 04/22/18 0603: Anion Gap 11, Estimated GFR > 60, BUN/Creatinine Ratio 7.1, CBC w Diff NO MAN DIFF REQ, RBC 4.02 L, MCV 99.2 H, MCH 34.2 H, MCHC 34.5, RDW 14.0, MPV 9.7, Gran % 83.4 H, Lymphocytes % 11.1 L, Monocytes % 4.0, Eosinophils % 1.2, Basophils % 0.3, Absolute Granulocytes 5.0, Absolute Lymphocytes 0.7 L, Absolute Monocytes 0.2, Absolute Eosinophils 0.1, Absolute Basophils 0 04/22/18 0230: Troponin I < 0.01 04/21/18 2240: Urine Opiates Screen < 100, Methadone Screen < 40, Barbiturate Screen < 60, Ur Phencyclidine Scrn < 6.00, Amphetamines Screen < 100, U Benzodiazepines Scrn < 85, Urine Cocaine Screen < 50, Urine Cannabis Screen < 5.00 04/21/18 2110: Magnesium 1.6, Troponin I < 0.01 04/21/18 1530: Anion Gap 13, Estimated GFR > 60, BUN/Creatinine Ratio 6.3 L, Glucose 110 H, Calcium 9.7, Phosphorus 3.7, Magnesium 1.2 L, Troponin I < 0.01, TSH &T3 &Free T4 Intrp 2.640, CBC w Diff NO MAN DIFF REQ, RBC 4.55 L, MCV 98.3 H, MCH 34.1 H, MCHC 34.7, RDW 14.1, MPV 9.0, Gran % 69.1, Lymphocytes % 19.6 L, Monocytes % 9.7 H, Eosinophils % 1.1, Basophils % 0.5, Absolute Granulocytes 3.9, Absolute Lymphocytes 1.1 L, Absolute Monocytes 0.5, Absolute Eosinophils 0.1, Absolute Basophils 0, Serum Alcohol 12.0 Assessment/Plan Assessment/Plan 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 I would stop IV cardizem and replace with short acting P.O cardizem 30 mg PO Q 4 hours 8 am to 10 pm. I would reduce patient's ativan as he is very sleepy. Continue telemetry? Yes
--- NOTE | 2018-04-22 16:37 | ECHOCARDIOGRAM REPORT ---
QUENTIN MEDINA Age: 57 : 1960 Gender: M Exam Date: 04/22/2018 10:25 Exam Location: [address] Ht (in): 77 Wt (lb): 175 BSA: 2.07 BP: 138 / 78 Ordering Physician: Deedee Wallace MD Referring Physician: Deedee Wallace MD Technologist: Pranav Allred [facility] Room Number: 184-1 Indications: AFIB/FLUTTER Rhythm: Atrial fibrillation Technical Quality: Fair FINDINGS Left Ventricle Normal global left ventricular size, wall thickness, systolic function with no obvious regional wall motion abnormalities. Left ventricular ejection fraction is estimated at >65 %. Right Ventricle Right ventricle not well visualized, grossly normal. Right Atrium Right atrium not well visualized, grossly normal. Left Atrium Mild left atrial dilatation. Mitral Valve Mild thickening/calcification of the anterior mitral valve leaflets. Trace mitral regurgitation. Aortic Valve Focal thickening of the aortic valve cusps. No aortic stenosis. Trace aortic regurgitation. Tricuspid Valve Tricuspid valve is normal in structure and function. Trace tricuspid regurgitation. No evidence of pulmonary hypertension. Pulmonic Valve Pulmonic valve not well visualized. No pulmonic regurgitation. Pericardium No pericardial or pleural effusion. Great Vessels Normal size aortic root. Aortic arch and great vessels not seen. CONCLUSIONS Normal global left ventricular size, wall thickness, systolic function with no obvious regional wall motion abnormalities. Mild left atrial dilatation. Mild thickening/calcification of the anterior mitral valve leaflets. Trace mitral regurgitation. Focal thickening of the aortic valve cusps. No aortic stenosis. Trace aortic regurgitation. Trace tricuspid regurgitation. No evidence of pulmonary hypertension. Aortic arch and great vessels not seen. Florentino Siegel M.D. (Electronically Signed) Final Date: 22 April 2018 16:36 MEASUREMENTS (Male / Female) Normal Values 2D ECHO LV Diastolic Diameter PLAX 4.9 cm 4.2 - 5.9 / 3.9 - 5.3 cm LV Systolic Diameter PLAX 2.7 cm 2.1 - 4.0 cm LV Fractional Shortening PLAX 44.9 % 25 - 46 % LV Ejection Fraction 2D Teich 76.1 % IVS Diastolic Thickness 0.8 cm LVPW Diastolic Thickness 0.9 cm LV Relative Wall Thickness 0.3 RV Internal Dim ED PLAX 3.3 cm 1.9 - 3.8 cm LVOT Diameter 2.5 cm Aortic Root Diameter 3.3 cm LA Systolic Diameter LX 3.2 cm 3.0 - 4.0 / 2.7 - 3.8 cm LA Volume 46.0 cm 18 - 58 / 22 - 52 cm Ascending Aorta Diameter 3.4 cm DOPPLER AV Peak Velocity 130.0 cm/s AV Peak Gradient 6.8 mmHg AV Mean Velocity 80.8 cm/s AV Mean Gradient 3.0 mmHg AV Velocity Time Integral 19.8 cm LVOT Peak Velocity 59.4 cm/s LVOT Peak Gradient 1.4 mmHg LVOT Mean Velocity 37.1 cm/s LVOT Mean Gradient 1.0 mmHg LVOT Velocity Time Integral 9.8 cm LVOT Stroke Volume 47.9 cm AV Area Cont Eq vti 2.4 cm AV Area Cont Eq pk 2.2 cm MV Peak Velocity 85.5 cm/s MV Peak Gradient 2.9 mmHg MV Mean Velocity 52.9 cm/s MV Mean Gradient 1.0 mmHg Mitral E Point Velocity 71.1 cm/s MV PHT Velocity 63.8 cm/s MV Deceleration [place] 325.0 cm/s MV Pressure Half Time 58.9 ms MV Area PHT 3.7 cm MV Deceleration Time 239.0 ms TR Peak Velocity 197.0 cm/s TR Peak Gradient 15.5 mmHg Right Atrial Pressure 10.0 mmHg Pulmonary Artery Systolic Pressu 25.5 mmHg Right Ventricular Systolic Press 25.5 mmHg PV Peak Velocity 57.9 cm/s PV Peak Gradient 1.3 mmHg PV Mean Velocity 36.9 cm/s PV Mean Gradient 1.0 mmHg PV Velocity Time Integral 7.3 cm LV E' Lateral Velocity 4.9 cm/s Mitral E to LV E' Lateral Ratio 14.6
[2018-04-23] VITALS (9 sets, daily range): BP systolic 90–148; BP diastolic 64–92
[2018-04-23 08:20] LABS: ABSOLUTE EOSINOPHIL COUNT 0.1 /CUMM (0.0-0.7); MEAN CORPUSCULAR HGB CONC 34.3 G/DL (33.0-37.0)
[2018-04-23 08:48] LABS: ABSOLUTE BASOPHIL COUNT 0.1 /CUMM (0.0-0.2); ABSOLUTE GRANULOCYTE CT 7.3 /CUMM (1.4-6.5); ABSOLUTE LYMPH COUNT 1.1 /CUMM (1.2-3.4); ABSOLUTE MONOCYTE COUNT 0.8 /CUMM (0.10-0.60); BASOPHIL % 0.5 % (0.0-2.0); EOSINOPHIL % 0.9 % (0-5); GRANULOCYTE % 78.6 % (42.2-75.2); HEMATOCRIT 41.1 % (42-52); MEAN CORPUSCULAR HGB 33.9 PG (27.0-31.0); MEAN CORPUSCULAR VOLUME 98.9 FL (80.0-94.0); MEAN PLATELET VOLUME 9.9 FL (7.4-10.4); PLATELET COUNT 127 /CUMM (130-400); RBC DISTRIBUTION WIDTH 13.9 % (11.5-14.5); RED BLOOD CELL CT 4.15 /CUMM (4.70-6.10)
[2018-04-23 09:07] LABS: WHITE BLOOD CELL COUNT 9.3 /CUMM (4.8-10.8)
--- NOTE | 2018-04-23 11:25 | PN- Cardiology ---
Subjective Subjective: Patient is resting comfortably. He remains in soft restraints. He denies active palpitations. Objective Vital Signs and I&Os Vital Signs Date Time Temp Pulse Resp B/P B/P Pulse O2 O2 Flow FiO2 Mean Ox Delivery Rate 04/23 0942 80 123/74 04/23 0942 80 123/74 04/23 0942 80 123/74 04/23 0530 97.9 113 20 128/90 97 Nasal 1.0L Cannula 04/23 0504 97.9 113 20 128/90 04/23 0400 112 94 Nasal 1.0L Cannula 04/23 0033 136 22 148/92 92 Room Air 04/22 2311 Room Air 04/22 2245 98.0 115 24 136/88 94 Room Air 04/22 2243 98.0 115 24 136/88 04/22 2229 155 142/90 04/22 2125 98.0 105 24 168/98 99 Room Air 04/22 2047 129 04/22 2000 98.4 129 22 160/94 04/22 1948 104 160/94 04/22 1942 112 160/94 04/22 1456 97.9 82 20 114/64 95 04/22 1427 Room Air Room Air 04/22 1348 85 118/70 04/22 1200 99.0 84 22 112/78 94 Room Air Intake & Output 04/23 1600 04/23 0800 04/23 0000 04/22 1600 04/22 0800 04/22 0000 Intake Total 260 720 620 760 500 Output Total 650 300 Balance 260 70 620 760 200 Intake, IV 20 70 40 20 Intake, Oral 240 720 550 720 480 Number 0 0 Bowel Movements Output, Urine 650 300 Patient 176 lb 181 lb Weight Weight Bed scale Reported by Patient Measurement Method Physical Exam: General: no apparent distress. In soft restraints. Eyes: No obvious scleral icterus. HEENT: No jugular venous distention or abnormal jugular venous pulsations. Cardiovascular: Normal intensity S1/S2. Irregular. Respiratory: Lungs clear to auscultation bilaterally. Abdomen: Soft, nontender with no guarding or rebound tenderness. Musculoskeletal: No clubbing or cyanosis noted Skin: warm Neurologic: No gross focal deficits noted. Current Medications: Current Medications Sig/Jay Start time Last Medication Dose Route Stop Time Status Admin Apixaban 5 MG BID 04/21 2100 AC 04/23 PO 0942 Aspirin Buffered 325 MG DAILY 04/22 0900 AC 04/23 PO 0942 Budesonide/ 2 PUF BID 04/21 2100 AC 04/22 Formoterol Fumarate INH 1942 Diltiazem HCl 125 MG Q24H 04/22 2345 DC 04/23 Sodium Chloride 100 ML IV 0037 Diltiazem HCl 10 MG ONCE ONE 04/22 2230 DC 04/22 IV PUSH 04/22 2231 2229 Diltiazem HCl 30 MG ONCE ONE 04/220 DC PO 04/22 213 Diltiazem HCl 30 MG 0800,1200,1600,04/22 2000 AC 04/23 PO 0942 Diltiazem HCl 30 MG Q4 04/22 1400 DC 04/22 PO 1348 Diltiazem HCl 125 MG Q24H 04/22 1300 DC Dextrose/Water 100 ML IV Folic Acid 1 MG DAILY 04/22 0900 AC 04/23 PO 0942 Lisinopril 20 MG DAILY 04/22 0900 AC 04/23 PO 0942 Lorazepam 2 MG Q6 04/22 1800 DC PO Lorazepam 1 MG Q6 04/22 1800 AC 04/23 PO 0417 Lorazepam 2 MG Q4 04/22 1000 DC 04/22 PO 1004 Lorazepam 0 Q1P PRN 04/21 1900 AC 04/23 IV 0459 Magnesium Oxide 400 MG BID 04/22 1401 AC 04/23 PO 04/23 2101 0942 Metoprolol Succinate 100 MG DAILY 04/22 0900 AC 04/23 PO 0942 Multivitamins 1 TAB DAILY 04/22 0900 AC 04/23 Therapeutic PO 0942 Olanzapine 2.5 MG ONCE ONE 04/22 2130 DC 04/22 IM 04/22 2131 2141 Patient Medication 1 ED ONE ONE 04/22 1400 DC Teaching ED 04/22 1401 Thiamine HCl 100 MG DAILY 04/21 1915 04/23 PO 0942 Results Last 48 Hrs of Labs/Mics: Laboratory Tests 04/23/18 0617: Anion Gap 10, Estimated GFR > 60, BUN/Creatinine Ratio 8.6, Magnesium 1.4 L, CBC w Diff NO MAN DIFF REQ, RBC 4.15 L, MCV 98.9 H, MCH 33.9 H, MCHC 34.3, RDW 13.9, MPV 9.9, Gran % 78.6 H, Lymphocytes % 11.7 L, Monocytes % 8.3, Eosinophils % 0.9, Basophils % 0.5, Absolute Granulocytes 7.3 H, Absolute Lymphocytes 1.1 L, Absolute Monocytes 0.8 H, Absolute Eosinophils 0.1, Absolute Basophils 0.1 04/22/18 0603: Anion Gap 11, Estimated GFR > 60, BUN/Creatinine Ratio 7.1, CBC w Diff NO MAN DIFF REQ, RBC 4.02 L, MCV 99.2 H, MCH 34.2 H, MCHC 34.5, RDW 14.0, MPV 9.7, Gran % 83.4 H, Lymphocytes % 11.1 L, Monocytes % 4.0, Eosinophils % 1.2, Basophils % 0.3, Absolute Granulocytes 5.0, Absolute Lymphocytes 0.7 L, Absolute Monocytes 0.2, Absolute Eosinophils 0.1, Absolute Basophils 0 04/22/18 0230: Magnesium 1.6, Troponin I < 0.01, Vitamin B12 972 H 04/21/18 2240: Urine Opiates Screen < 100, Methadone Screen < 40, Barbiturate Screen < 60, Ur Phencyclidine Scrn < 6.00, Amphetamines Screen < 100, U Benzodiazepines Scrn < 85, Urine Cocaine Screen < 50, Urine Cannabis Screen < 5.00 04/21/18 2110: Magnesium 1.6, Troponin I < 0.01 04/21/18 1530: Anion Gap 13, Estimated GFR > 60, BUN/Creatinine Ratio 6.3 L, Glucose 110 H, Calcium 9.7, Phosphorus 3.7, Magnesium 1.2 L, Troponin I < 0.01, TSH &T3 &Free T4 Intrp 2.640, CBC w Diff NO MAN DIFF REQ, RBC 4.55 L, MCV 98.3 H, MCH 34.1 H, MCHC 34.7, RDW 14.1, MPV 9.0, Gran % 69.1, Lymphocytes % 19.6 L, Monocytes % 9.7 H, Eosinophils % 1.1, Basophils % 0.5, Absolute Granulocytes 3.9, Absolute Lymphocytes 1.1 L, Absolute Monocytes 0.5, Absolute Eosinophils 0.1, Absolute Basophils 0, Serum Alcohol 12.0 Recent Imaging Studies: Telemetry tracings were personally reviewed and showed atrial fibrillation Echo Normal global left ventricular size, wall thickness, systolic function with no obvious regional wall motion abnormalities. Mild left atrial dilatation. Mild thickening/calcification of the anterior mitral valve leaflets. Trace mitral regurgitation. Focal thickening of the aortic valve cusps. No aortic stenosis. Trace aortic regurgitation. Trace tricuspid regurgitation. No evidence of pulmonary hypertension. Aortic arch and great vessels not seen. Florentino Siegel M.D. (Electronically Signed) Final Date: 22 April 2018 16:36 Assessment/Plan Assessment/Plan 1. Paroxysmal atrial fibrillation on Eliquis 2. Tachycardia 3. Alcohol withdrawal 4. History of hypertension Patient remained on low-dose IV Cardizem this morning; would try and wean off the IV Cardizem and if needed can increase the oral Cardizem to 60 mg p.o. every 4 hours if blood pressure tolerates. Continue the Toprol-XL. If heart rate remains difficult to control can give 1 dose of digoxin 0.5 mg IV 1. 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 If heart rate remains difficult to control after symptoms of alcohol withdrawal have resolved he may be a candidate for repeat cardioversion. Echocardiogram as above shows no evidence of tachycardia induced cardiomyopathy or alcohol-induced cardiomyopathy. Amish Mondragon MD [facility] Continue telemetry? Yes
--- NOTE | 2018-04-23 11:52 | PN- Housestaff ---
See Addendum Subjective Follow-up For: Atrial fibrillation with rapid ventricular rate, EtOH Tele-Events Since Last Visit: Atrial fibrillation, [address], with dropped beats Subjective: No overnight events. The patient believes it is 1920 and that he is at his house. He does know the president though. He feels good this morning and has no chest pain, shortness of breath, abdominal pain, nausea, vomiting, or diarrhea. Review of Systems Constitutional: Reports: no symptoms. EENTM: Reports: no symptoms. Cardiovascular: Reports: no symptoms. Respiratory: Reports: no symptoms. Gastrointestinal: Reports: no symptoms. Genitourinary: Reports: no symptoms. Musculoskeletal: Reports: no symptoms. Skin: Reports: no symptoms. Neurological/Psychological: Reports: no symptoms. Hematologic/Endocrine: Reports: no symptoms. Immunologic/Allergic: Reports: no symptoms. Objective Last 24 Hrs of Vital Signs/I&O Vital Signs Date Time Temp Pulse Resp B/P B/P Pulse O2 O2 Flow FiO2 Mean Ox Delivery Rate 04/23 0942 80 123/74 04/23 0942 80 123/74 04/23 0942 80 123/74 04/23 0530 97.9 113 20 128/90 97 Nasal 1.0L Cannula 04/23 0504 97.9 113 20 128/90 04/23 0400 112 94 Nasal 1.0L Cannula 04/23 0033 136 22 148/92 92 Room Air 04/22 2311 Room Air 04/22 2245 98.0 115 24 136/88 94 Room Air 04/22 2243 98.0 115 24 136/88 04/22 2229 155 142/90 04/22 2125 98.0 105 24 168/98 99 Room Air 04/22 2047 129 04/22 2000 98.4 129 22 160/94 04/22 1948 104 160/94 04/22 1942 112 160/94 04/22 1456 97.9 82 20 114/64 95 04/22 1427 Room Air Room Air 04/22 1348 85 118/70 04/22 1200 99.0 84 22 112/78 94 Room Air Intake & Output 04/23 1600 04/23 0800 04/23 0000 Intake Total 260 720 Output Total 650 Balance 260 70 Intake, IV 20 Intake, Oral 240 720 Number 0 Bowel Movements Output, Urine 650 Patient 79.889 kg Weight Weight Bed scale Measurement Method Physical Exam General Appearance: Alert, No Acute Distress Cardiovascular: irregular Lungs: Clear to Auscultation Extremities: No Edema, Normal Pulses, No Tenderness/Swelling Current Medications: Current Medications Sig/Jay Start time Last Medication Dose Route Stop Time Status Admin Apixaban 5 MG BID 04/21 2100 AC 04/23 PO 0942 Aspirin Buffered 325 MG DAILY 04/22 0900 AC 04/23 PO 0942 Budesonide/ 2 PUF BID 04/21 2100 AC 04/22 Formoterol Fumarate INH 1942 Diltiazem HCl 60 MG 0800,1200,1600,04/23 1200 AC PO Diltiazem HCl 125 MG Q24H 04/22 2345 DC 04/23 Sodium Chloride 100 ML IV 0037 Diltiazem HCl 10 MG ONCE ONE 04/22 2230 DC 04/22 IV PUSH 04/22 223 2229 Diltiazem HCl 30 MG ONCE ONE 04/22 2130 DC PO 04/22 2131 Diltiazem HCl 30 MG 0800,1200,1600,04/22 2000 DC 04/23 PO 0942 Diltiazem HCl 30 MG Q4 04/22 1400 DC 04/22 PO 1348 Diltiazem HCl 125 MG Q24H 04/22 1300 DC Dextrose/Water 100 ML IV Folic Acid 1 MG DAILY 04/22 0900 AC 04/23 PO 0942 Lisinopril 20 MG DAILY 04/22 0900 AC 04/23 PO 0942 Lorazepam 2 MG Q6 04/22 1800 DC PO Lorazepam 1 MG Q6 04/22 1800 AC 04/23 PO 0417 Lorazepam 2 MG Q4 04/22 1000 DC 04/22 PO 1004 Lorazepam 0 Q1P PRN 04/21 1900 AC 04/23 IV 0459 Magnesium Chloride 64 MG ONCE ONE 04/23 1145 DC PO 04/23 1146 Magnesium Oxide 400 MG BID 04/22 1401 AC 04/23 PO 04/23 2101 0942 Metoprolol Succinate 100 MG DAILY 04/22 09 AC 04/23 PO 0942 Multivitamins 1 TAB DAILY 04/22 0900 AC 04/23 Therapeutic PO 0942 Olanzapine 2.5 MG ONCE ONE 04/22 2130 DC 04/22 IM 04/22 2131 2141 Patient Medication 1 ED ONE ONE 04/22 1400 DC Teaching ED 04/22 1401 Thiamine HCl 100 MG DAILY 04/21 1915 AC 04/23 PO 0942 Last 24 Hrs of Lab/Oj Results Last 24 Hrs of Labs/Mics: Laboratory Tests 04/23/18 0617: Anion Gap 10, Estimated GFR > 60, BUN/Creatinine Ratio 8.6, Magnesium 1.4 L, CBC w Diff NO MAN DIFF REQ, RBC 4.15 L, MCV 98.9 H, MCH 33.9 H, MCHC 34.3, RDW 13.9, MPV 9.9, Gran % 78.6 H, Lymphocytes % 11.7 L, Monocytes % 8.3, Eosinophils % 0.9, Basophils % 0.5, Absolute Granulocytes 7.3 H, Absolute Lymphocytes 1.1 L, Absolute Monocytes 0.8 H, Absolute Eosinophils 0.1, Absolute Basophils 0.1 Assessment/Plan Assessment: The patient is a 57-year-old gentleman with past medical history of hypertension , COPD not on any home oxygen and atrial fibrillation on Eliquis status post cardioversion in 2009,2011 and 2015. The patient presented to [place] ED on after being sent in by Dr. Siegel for evaluation of atrial fibrillation with RVR. Vitals on presentation were significant for heart rate of 180, and blood pressure of 149/100 Admission labs are significant for macrocytosis with MCV 98.3 and MCH 34.1, first set of troponins were negative and magnesium was 1.2 In the ED patient received 10 mg IV push of Cardizem and was started on Cardizem drip The patient is being admitted to telemetry floor for treatment and evaluation of following conditions #Atrial fibrillation with rapid ventricular rate Patient was diagnosed about 10 years ago and is on Eliquis currently. He had cardioversion done in 2009, 2011 and 2015, with return to normal sinus rhythm. Today he is extremely shaky and presenting with heart rate of 180 in atrial fibrillation with RVR, in the context of excessive alcohol consumption. Serial EKG and troponins are negative -Telemetry monitoring for any arrhythmia Patient was started on diltiazem drip last night. We have discontinued this morning and will start him on higher dose oral medication. -Continue metoprolol and Eliquis -Cardiology recommendations appreciated -Echocardiogram pending #Hypomagnesemia-resolved He presented with the magnesium of 1.2 and was given 1 dose of 2 g of magnesium sulfate in ED. continue oral supplementation #Alcohol abuse/withdrawal Patient drinks 6 packs of beer everyday last drink was around 10 PM on 04/20. He is very anxious right now and jittery. we will monitor closely. He received 6 mg of IV Ativan in 4 hours from 6 AM to 8 AM. He was initially on PRN Ativan. Was started on 2 mg every 6h was found to be 6 extensively drowsy hence we are going to maintain him --on 1 mg Q6 Ativan -CIWA protocol -Multivitamin and Thiamine Patient has poor insight and does not believe he has a problem. His CIWA scores have been high overnight. Will maintain his current dose of Ativan. #Macrocytosis Most likely secondary to alcohol abuse -Alcohol cessation counseling -Check B12 and folate #History of COPD -TR -continue symbicort #Continue aspirin, metoprolol, lisinopril Heart healthy diet/DVT prophylaxis with Eliquis and alps/full code Problem List: 1. Atrial fibrillation with RVR 2. Alcohol abuse Pain Ratin Pain Location: no Pain Goal: Remain pain free Pain Plan: see a/p Tomorrow's Labs & Rationales: cbc, bep
[2018-04-24] VITALS (13 sets, daily range): BP systolic 90–128; BP diastolic 64–80
--- NOTE | 2018-04-24 08:12 | PN- Housestaff ---
Alexia Parekh MD 04/24/18 0812: Subjective Follow-up For: Atrial fibrillation with rapid ventricular rate, EtOH Subjective: Patient seen and examined at bedside. No overnight events. Patient is alert oriented 2. Denies nausea, vomiting, abdominal pain, chest pain. Review of Systems Constitutional: Reports: no symptoms, see HPI. Denies: chills. Objective Last 24 Hrs of Vital Signs/I&O Vital Signs Date Time Temp Pulse Resp B/P B/P Pulse O2 O2 Flow FiO2 Mean Ox Delivery Rate 04/24 1100 98.4 80 20 120/80 04/24 1000 98.1 88 22 116/80 04/24 0800 98.9 100 16 112/74 04/24 0800 94 Room Air 04/24 0800 98.9 100 16 114/74 94 Room Air Room Air 04/24 0757 100 110/70 04/24 0757 100 110/70 04/24 0756 100 110/70 04/24 0701 97.7 83 20 110/70 96 Room Air 04/24 0430 98.0 69 20 108/66 04/24 0430 98.0 69 20 108/66 93 Room Air 04/24 0022 97.9 110 20 110/76 04/24 0017 97.9 110 20 110/76 94 Room Air 04/23 2226 98.5 98 16 122/80 95 Nasal Cannula 04/23 2146 112 122/80 04/23 2031 93 20 104/70 04/23 1856 86 18 90/64 93 Room Air 04/23 1722 90 110/70 04/23 1700 90 18 110/70 96 Room Air 04/23 1600 96 Room Air 04/23 1454 98.1 99 20 128/70 95 Nasal Cannula 04/23 1324 90 128/70 Intake & Output 04/24 1600 04/24 0800 04/24 0000 Intake Total 240 550 Output Total 350 Balance 240 200 Intake, Oral 240 550 Number 0 Bowel Movements Output, Urine 350 Patient 175 lb Weight Physical Exam General Appearance: Alert, Cooperative, No Acute Distress Cardiovascular: Regular Rate, Normal S1, Normal S2, No Murmurs Lungs: Clear to Auscultation Abdomen: Normal Bowel Sounds, Soft, No Tenderness Neurological: Normal Speech, Strength at 5/5 X4 Ext, Normal Tone Extremities: No Cyanosis Vascular: Normal Pulses Current Medications: Current Medications Sig/Jay Start time Last Medication Dose Route Stop Time Status Admin Apixaban 5 MG BID 04/21 2100 AC 04/24 PO 0756 Aspirin Buffered 325 MG DAILY 04/22 09 AC 04/24 PO 0756 Budesonide/ 2 PUF BID 04/21 2100 AC 04/24 Formoterol Fumarate INH 0757 Diltiazem HCl 60 MG 0800,1200,1600,2000 04/23 1200 AC 04/24 PO 0756 Folic Acid 1 MG DAILY 04/22 09 AC 04/24 PO 0756 Lisinopril 20 MG DAILY 04/22 0900 AC 04/24 PO 0757 Lorazepam 1 MG Q6 04/24 1200 AC PO Lorazepam 1.5 MG Q6 04/23 1800 DC 04/24 PO 0540 Lorazepam 1 MG Q6 04/22 1800 DC 04/23 PO 1151 Lorazepam 0 Q1P PRN 04/21 1900 AC 04/24 IV 1020 Magnesium Oxide 400 MG BID 04/22 1401 DC 04/23 PO 04/23 2101 2037 Metoprolol Succinate 100 MG DAILY 04/22 09 AC 04/24 PO 0757 Multivitamins 1 TAB DAILY 04/22 09 AC 04/24 Therapeutic PO 0757 Thiamine HCl 100 MG DAILY 04/21 1915 AC 04/24 PO 0757 Last 24 Hrs of Lab/Oj Results Last 24 Hrs of Labs/Mics: Laboratory Tests 04/24/18 06: Anion Gap 10, Estimated GFR > 60, BUN/Creatinine Ratio 11.4, Magnesium 1.4 L, CBC w Diff NO MAN DIFF REQ, RBC 3.83 L, MCV 99.5 H, MCH 34.4 H, MCHC 34.5, RDW 14.0, MPV 10.0, Gran % 65.9, Lymphocytes % 18.7 L, Monocytes % 12.7 H, Eosinophils % 2.2, Basophils % 0.5, Absolute Granulocytes 4.6, Absolute Lymphocytes 1.3, Absolute Monocytes 0.9 H, Absolute Eosinophils 0.2, Absolute Basophils 0 Assessment/Plan Assessment: The patient is a 57-year-old gentleman with past medical history of hypertension , COPD not on any home oxygen and atrial fibrillation on Eliquis status post cardioversion in 2009,2011 and 2015. The patient presented to [place] ED on after being sent in by Dr. Siegel for evaluation of atrial fibrillation with RVR. #Atrial fibrillation with rapid ventricular rate Patient was diagnosed about 10 years ago and is on Eliquis currently. He had cardioversion done in 2009, 2011 and 2016, with return to normal sinus rhythm. Today he is extremely shaky and presenting with heart rate of 180 in atrial fibrillation with RVR, in the context of excessive alcohol consumption. Serial EKG and troponins are negative -Telemetry monitoring for any arrhythmia -On Cardizem 60 every 6 -Continue metoprolol and Eliquis -Cardiology recommendations appreciated -Echocardiogram NRL #Hypomagnesemia-resolved He presented with the magnesium of 1.2 and was given 1 dose of 2 g of magnesium sulfate in ED. continue oral supplementation #Alcohol abuse/withdrawal Patient drinks 6 packs of beer everyday last drink was around 10 PM on 04/20. On tapering dose of Ativan. -CIWA protocol -Multivitamin and Thiamine Patient has poor insight and does not believe he has a problem. His CIWA scores have been high overnight. Will maintain his current dose of Ativan. #Macrocytosis Most likely secondary to alcohol abuse -Alcohol cessation counseling -Check B12 and folate #History of COPD -TRC -continue symbicort #Continue aspirin, metoprolol, lisinopril Heart healthy diet/DVT prophylaxis with Eliquis and alps/full code Problem List: 1. Atrial fibrillation with RVR Pain Ratin Pain Location: NONE Pain Goal: Remain pain free Pain Plan: TYLENOL Tomorrow's Labs & Rationales: Freddie Linares 04/24/18 1000: Attending MD Review Statement Attending Statement Attending MD Statement: examined this patient, discuss w/resident/PA/GARDENER FLORIST, agreed w/resident/PA/GARDENER FLORIST, discussed with family, reviewed EMR data (avail), discussed with nursing, discussed with case mgmt, reviewed images, amended to note Attending Assessment/Plan: Yael is still delirious. Patient HR better controlled today. Cardizem drip tapered off. bedside. ECHO with normal EF with no RWMA. HR controlled on metoprolol and cardizem PO. Continue with ativan taper for alcohol withdrawal. Continue eliquis for anticaogulation. Monitor hemodynamics and mental status. Reassess restraints.
[2018-04-24 08:16] LABS: ABSOLUTE BASOPHIL COUNT 0 /CUMM (0.0-0.2); ABSOLUTE EOSINOPHIL COUNT 0.2 /CUMM (0.0-0.7); ABSOLUTE GRANULOCYTE CT 4.6 /CUMM (1.4-6.5); ABSOLUTE LYMPH COUNT 1.3 /CUMM (1.2-3.4); ABSOLUTE MONOCYTE COUNT 0.9 /CUMM (0.10-0.60); BASOPHIL % 0.5 % (0.0-2.0); EOSINOPHIL % 2.2 % (0-5); GRANULOCYTE % 65.9 % (42.2-75.2); HEMATOCRIT 38.2 % (42-52); MEAN CORPUSCULAR HGB 34.4 PG (27.0-31.0); MEAN CORPUSCULAR HGB CONC 34.5 G/DL (33.0-37.0); MEAN CORPUSCULAR VOLUME 99.5 FL (80.0-94.0); RED BLOOD CELL CT 3.83 /CUMM (4.70-6.10)
[2018-04-24 09:15] LABS: PLATELET COUNT 125 /CUMM (130-400)
[2018-04-25] VITALS (9 sets, daily range): BP systolic 100–164; BP diastolic 60–92
[2018-04-25 07:53] LABS: ABSOLUTE BASOPHIL COUNT 0 /CUMM (0.0-0.2); ABSOLUTE EOSINOPHIL COUNT 0.2 /CUMM (0.0-0.7); ABSOLUTE GRANULOCYTE CT 5.2 /CUMM (1.4-6.5); ABSOLUTE LYMPH COUNT 1.2 /CUMM (1.2-3.4); BASOPHIL % 0.6 % (0.0-2.0); EOSINOPHIL % 2.4 % (0-5); GRANULOCYTE % 67.7 % (42.2-75.2); HEMATOCRIT 38.9 % (42-52); MEAN CORPUSCULAR HGB 34.1 PG (27.0-31.0); MEAN CORPUSCULAR HGB CONC 34.2 G/DL (33.0-37.0); MEAN CORPUSCULAR VOLUME 99.9 FL (80.0-94.0); MEAN PLATELET VOLUME 9.9 FL (7.4-10.4); PLATELET COUNT 154 /CUMM (130-400); RBC DISTRIBUTION WIDTH 13.9 % (11.5-14.5); RED BLOOD CELL CT 3.89 /CUMM (4.70-6.10); WHITE BLOOD CELL COUNT 7.6 /CUMM (4.8-10.8)
--- NOTE | 2018-04-25 08:05 | PN- Housestaff ---
See Addendum Subjective Follow-up For: Atrial fibrillation with RVR Alcohol withdrawal Tele-Events Since Last Visit: Atrial fibrillation with heart rate ranging in 70s-100 Subjective: seen and examined. Resting comfortably and having breakfast. Currently in a [place]. Is oriented to place and person not oriented to time. Aware of the current president. Does not offer any complaints. States that he has not been mobile for a while and would like to walk today Review of Systems Constitutional: Reports: see HPI. Objective Last 24 Hrs of Vital Signs/I&O Vital Signs Date Time Temp Pulse Resp B/P B/P Pulse O2 O2 Flow FiO2 Mean Ox Delivery Rate 04/25 0754 104 110/70 04/25 0754 104 110/70 04/25 0753 104 110/70 04/25 0648 98.5 83 18 102/78 95 Room Air 04/25 0000 95 Room Air 04/24 2044 97.7 93 20 110/70 95 Room Air 04/24 2042 86 110/70 04/24 2000 83 18 112/66 95 Room Air 04/24 1800 86 18 90/64 93 Room Air 04/24 1754 86 90/64 04/24 1600 93 Room Air 04/24 1437 98.2 73 18 128/64 94 Room Air 04/24 1400 98.2 80 16 126/74 04/24 1258 88 128/70 04/24 1200 98.2 100 22 124/70 96 Room Air Room Air 04/24 1100 98.4 80 20 120/80 04/24 1000 98.1 88 22 116/80 Intake & Output 04/25 1600 04/25 0800 04/25 0000 Intake Total 600 550 Output Total 400 Balance 600 150 Intake, Oral 600 550 Number 0 Bowel Movements Output, Urine 400 Patient 177 lb Weight Weight Bed scale Measurement Method Physical Exam General Appearance: Alert, Cooperative, No Acute Distress Cardiovascular: irregular Lungs: Clear to Auscultation, Normal Air Movement Abdomen: Normal Bowel Sounds, Soft, No Tenderness Neurological: Normal Speech, apperaed a little slow Current Medications: Current Medications Sig/Jay Start time Last Medication Dose Route Stop Time Status Admin Apixaban 5 MG BID 04/21 2100 AC 04/25 PO 0754 Aspirin Buffered 325 MG DAILY 04/22 09 AC 04/25 PO 0754 Budesonide/ 2 PUF BID 04/21 2100 AC 04/25 Formoterol Fumarate INH 0754 Diltiazem HCl 60 MG 0800,1200,1600,2000 04/23 1200 AC 04/25 PO 0754 Folic Acid 1 MG DAILY 04/22 0900 AC 04/25 PO 0754 Lisinopril 20 MG DAILY 04/22 0900 AC 04/25 PO 0754 Lorazepam 1 MG Q6 04/24 1200 AC 04/25 PO 0646 Lorazepam 1.5 MG Q6 04/23 1800 DC 04/24 PO 0540 Lorazepam 0 Q1P PRN 04/21 1900 AC 04/24 IV 1020 Magnesium Oxide 400 MG DAILY 04/24 1523 AC 04/25 PO 0754 Metoprolol Succinate 100 MG DAILY 04/22 0900 AC 04/25 PO 0753 Multivitamins 1 TAB DAILY 04/22 0900 AC 04/25 Therapeutic PO 0753 Senna/Docusate Sodium 2 TAB DAILY 04/24 2230 AC 04/25 PO 0753 Thiamine HCl 100 MG DAILY 04/21 1915 AC 04/25 PO 0752 Last 24 Hrs of Lab/Oj Results Last 24 Hrs of Labs/Mics: Laboratory Tests 04/25/18 0624: CBC w Diff NO MAN DIFF REQ, RBC 3.89 L, MCV 99.9 H, MCH 34.1 H, MCHC 34.2, RDW 13.9, MPV 9.9, Gran % 67.7, Lymphocytes % 15.9 L, Monocytes % 13.4 H, Eosinophils % 2.4, Basophils % 0.6, Absolute Granulocytes 5.2, Absolute Lymphocytes 1.2, Absolute Monocytes 1.0 H, Absolute Eosinophils 0.2, Absolute Basophils 0 Assessment/Plan Assessment: The patient is a 57-year-old gentleman with past medical history of hypertension , COPD not on any home oxygen and atrial fibrillation on Eliquis status post cardioversion in 2009,2011 and 2015. The patient presented to [place] ED on after being sent in by Dr. Siegel for evaluation of atrial fibrillation with RVR. #Atrial fibrillation with rapid ventricular rate -Telemetry monitoring for any arrhythmia -On Cardizem 60mg Q6 -Continue metoprolol and Eliquis -Cardiology recommendations appreciated -Echocardiogram NRL #Hypomagnesemia Likely secondary to alcohol abuse -Monitor and replete #Alcohol abuse/withdrawal Patient drinks 6 packs of beer everyday last drink was around 10 PM on 04/20. On tapering dose of Ativan. -CIUT protocol -Multivitamin and Thiamine -Patient has poor insight and does not believe he has a problem. CIWA running low, max 12 -Ativan 1mg q8 #Macrocytosis Most likely secondary to alcohol abuse -Alcohol cessation counseling #History of COPD -[facility] -continue symbicort #Continue aspirin, metoprolol, lisinopril Heart healthy diet/DVT prophylaxis with Eliquis and alps/full code Problem List: 1. Atrial fibrillation with RVR 2. Alcohol abuse 3. Hypomagnesemia Pain Ratin Pain Location: na Pain Goal: Pain 4 or less Pain Plan: prn Tomorrow's Labs & Rationales: bep
--- NOTE | 2018-04-25 09:47 | PN- Cardiology ---
Subjective Subjective: The patient is a little more alert today. He is still in [place] vest. Has Ativan is being weaned. Remains in atrial fibrillation. His rate is around 100 today. Objective Vital Signs and I&Os Vital Signs Date Time Temp Pulse Resp B/P B/P Pulse O2 O2 Flow FiO2 Mean Ox Delivery Rate 04/25 0754 104 110/70 04/25 0754 104 110/70 04/25 0753 104 110/70 04/25 0648 98.5 83 18 102/78 95 Room Air 04/25 0000 95 Room Air 04/24 2044 97.7 93 20 110/70 95 Room Air 04/24 2042 86 110/70 04/24 2000 83 18 112/66 95 Room Air 04/24 1800 86 18 90/64 93 Room Air 04/24 1754 86 90/64 04/24 1600 93 Room Air 04/24 1437 98.2 73 18 128/64 94 Room Air 04/24 1400 98.2 80 16 126/74 04/24 1258 88 128/70 04/24 1200 98.2 100 22 124/70 96 Room Air Room Air 04/24 1100 98.4 80 20 120/80 04/24 1000 98.1 88 22 116/80 Intake & Output 04/25 1600 04/25 0800 04/25 0000 04/24 1600 04/24 0800 04/24 0000 Intake Total 600 550 620 240 550 Output Total 400 200 350 Balance 600 150 420 240 200 Intake, Oral 600 550 620 240 550 Number 0 0 Bowel Movements Output, Urine 400 200 350 Patient 177 lb 175 lb Weight Weight Bed scale Measurement Method Physical Exam: Mildly sedated but in no distress HEENT exam normal Chest clear Heart irregular rhythm no murmurs Extremities no edema Neurologic seems oriented but slightly agitated and confused Current Medications: Current Medications Sig/Jay Start time Last Medication Dose Route Stop Time Status Admin Apixaban 5 MG BID 04/21 2100 AC 04/25 PO 0754 Aspirin Buffered 325 MG DAILY 04/22 900 AC 04/25 PO 0754 Budesonide/ 2 PUF BID 04/21 2100 AC 04/25 Formoterol Fumarate INH 0754 Diltiazem HCl 60 MG 0800,1200,1600,2000 04/23 1200 AC 04/25 PO 0754 Folic Acid 1 MG DAILY 04/22 900 AC 04/25 PO 0754 Lisinopril 20 MG DAILY 04/22 900 AC 04/25 PO 0754 Lorazepam 1 MG Q8 04/25 1400 AC PO Lorazepam 1 MG Q6 04/24 1200 DC 04/25 PO 0646 Lorazepam 0 Q1P PRN 04/21 1900 AC 04/24 IV 1020 Magnesium Oxide 400 MG BID 04/25 0900 AC PO Magnesium Oxide 400 MG DAILY 04/24 1523 DC 04/25 PO 0754 Metoprolol Succinate 100 MG DAILY 04/22 09 AC 04/25 PO 0753 Multivitamins 1 TAB DAILY 04/22 09 AC 04/25 Therapeutic PO 0753 Senna/Docusate Sodium 2 TAB DAILY 04/24 2230 AC 04/25 PO 0753 Thiamine HCl 100 MG DAILY 04/21 1915 AC 04/25 PO 0752 Results Last 48 Hrs of Labs/Mics: Laboratory Tests 04/25/18 06: CBC w Diff NO MAN DIFF REQ, RBC 3.89 L, MCV 99.9 H, MCH 34.1 H, MCHC 34.2, RDW 13.9, MPV 9.9, Gran % 67.7, Lymphocytes % 15.9 L, Monocytes % 13.4 H, Eosinophils % 2.4, Basophils % 0.6, Absolute Granulocytes 5.2, Absolute Lymphocytes 1.2, Absolute Monocytes 1.0 H, Absolute Eosinophils 0.2, Absolute Basophils 0 04/24/18 06: Anion Gap 10, Estimated GFR > 60, BUN/Creatinine Ratio 11.4, Magnesium 1.4 L, CBC w Diff NO MAN DIFF REQ, RBC 3.83 L, MCV 99.5 H, MCH 34.4 H, MCHC 34.5, RDW 14.0, MPV 10.0, Gran % 65.9, Lymphocytes % 18.7 L, Monocytes % 12.7 H, Eosinophils % 2.2, Basophils % 0.5, Absolute Granulocytes 4.6, Absolute Lymphocytes 1.3, Absolute Monocytes 0.9 H, Absolute Eosinophils 0.2, Absolute Basophils 0 Recent Imaging Studies: CONCLUSIONS Normal global left ventricular size, wall thickness, systolic function with no obvious regional wall motion abnormalities. Mild left atrial dilatation. Mild thickening/calcification of the anterior mitral valve leaflets. Trace mitral regurgitation. Focal thickening of the aortic valve cusps. No aortic stenosis. Trace aortic regurgitation. Trace tricuspid regurgitation. No evidence of pulmonary hypertension. Aortic arch and great vessels not seen. Florentino Siegel M.D. (Electronically Signed) Final Date: 22 April 2018 16:36 Assessment/Plan Assessment/Plan The patient's alcohol withdrawal symptoms are improving slowly. He remains in atrial fibrillation. His rate is better controlled on basically his home dose of medications. I recommend continuing the same treatment. He can be discharged when he is off of sedation and ambulatory. He can be sent home I think on his baseline medication regimen. Continue telemetry? Yes
[2018-04-26 07:11] VITALS: BP 130/74
--- NOTE | 2018-04-26 07:29 | PN- Housestaff ---
See Addendum Subjective Follow-up For: Atrial fibrillation with RVR Alcohol withdrawal Tele-Events Since Last Visit: Atrial fibrillation/atrial flutter overnight heart rate ranging in 50s currently in atrial fibrillation with heart rate in 90s Subjective: Seen and examined. Resting comfortably. Alert oriented 2. Review of Systems Constitutional: Reports: see HPI. Objective Last 24 Hrs of Vital Signs/I&O Vital Signs Date Time Temp Pulse Resp B/P B/P Pulse O2 O2 Flow FiO2 Mean Ox Delivery Rate 04/26 0829 100 124/70 04/26 0827 100 124/60 04/26 0827 100 124/70 04/26 0711 98.2 80 20 130/74 97 Room Air 04/25 2349 Room Air 04/25 2233 99.0 97 21 132/76 95 04/25 2158 92 132/82 04/25 1810 98.2 107 18 164/92 94 04/25 1612 104 126/78 04/25 1400 98.8 104 20 112/68 97 04/25 1352 98.0 104 20 100/70 98 Room Air 04/25 1200 98.6 90 20 102/60 04/25 1200 98.7 90 20 104/60 93 Room Air 04/25 1154 100 100/60 04/25 1100 100 22 100/60 04/25 1000 98.4 100 22 106/70 Intake & Output 04/26 1600 04/26 0800 04/26 0000 Intake Total Output Total Balance Patient 179 lb Weight Physical Exam General Appearance: Alert, Cooperative, No Acute Distress Cardiovascular: Normal S1, Normal S2 Lungs: Clear to Auscultation Abdomen: Normal Bowel Sounds, Soft Neurological: Normal Speech Current Medications: Current Medications Sig/Jay Start time Last Medication Dose Route Stop Time Status Admin Apixaban 5 MG BID 04/21 2100 AC 04/26 PO 0827 Aspirin Buffered 325 MG DAILY 04/22 09 AC 04/26 PO 08 Budesonide/ 2 PUF BID 04/21 2100 AC 04/26 Formoterol Fumarate INH 826 Diltiazem HCl 60 MG 0800,1200,1600,2000 04/23 1200 AC 04/26 PO 0827 Folic Acid 1 MG DAILY 04/22 0900 AC 04/26 PO 0827 Lisinopril 20 MG DAILY 04/22 0900 AC 04/26 PO 0827 Lorazepam 1 MG Q8 04/25 1400 AC 04/26 PO 0614 Lorazepam 0 Q1P PRN 04/21 1900 AC 04/25 IV 2037 Magnesium Oxide 400 MG BID 04/26 0900 AC 04/26 PO 08 Magnesium Oxide 400 MG BID 04/25 0900 DC PO Magnesium Sulfate 1 GM Q2H 04/25 1500 DC 04/25 Dextrose/Water 100 ML IV 04/25 1859 1850 Metoprolol Succinate 100 MG DAILY 04/22 0900 AC 04/26 PO 0829 Multivitamins 1 TAB DAILY 04/22 0900 AC 04/26 Therapeutic PO 0827 Senna/Docusate Sodium 2 TAB DAILY 04/24 2230 AC 04/26 PO 0827 Thiamine HCl 100 MG DAILY 04/21 1915 AC 04/26 PO 0826 Last 24 Hrs of Lab/Oj Results Last 24 Hrs of Labs/Mics: Laboratory Tests 04/26/18 0630: Anion Gap 9, Estimated GFR > 60, BUN/Creatinine Ratio 15.7, Magnesium 1.7 04/25/18 1145: Anion Gap 12, Estimated GFR > 60, BUN/Creatinine Ratio 15.0, Magnesium 1.4 L Assessment/Plan Assessment: The patient is a 57-year-old gentleman with past medical history of hypertension , COPD not on any home oxygen and atrial fibrillation on Eliquis status post cardioversion in 2009,2011 and 2015. The patient presented to [place] ED on after being sent in by Dr. Siegel for evaluation of atrial fibrillation with RVR. #Atrial fibrillation with rapid ventricular rate -Telemetry monitoring for any arrhythmia -On Cardizem 60mg Q6 -Continue metoprolol and Eliquis -Cardiology recommendations appreciated, as per cardiology recommendations he will be discharged home on his regular regimen. -Echocardiogram N[place] #Hypomagnesemia Likely secondary to alcohol abuse -Monitor and replete #Alcohol abuse/withdrawal Patient drinks 6 packs of beer everyday last drink was around 10 PM on 04/20. On tapering dose of Ativan. -CIWA protocol max 12, on 1 mg q8 and required 3 mg IV prn -Multivitamin and Thiamine -Patient has poor insight and does not believe he has a problem. CIWA running low, max 12 -Ativan 1mg q8 continue same dose #Macrocytosis Most likely secondary to alcohol abuse -Alcohol cessation counseling #History of COPD -TR -continue symbicort #Continue aspirin, metoprolol, lisinopril Heart healthy diet/DVT prophylaxis with Eliquis and alps/full code Problem List: 1. Atrial fibrillation with RVR 2. Alcohol abuse Pain Ratin Pain Location: na Pain Goal: Pain 4 or less Pain Plan: prn Tomorrow's Labs & Rationales: bep mag
[2018-04-26 08:00] VITALS: BP 120/70
--- NOTE | 2018-04-26 09:59 | PN- Cardiology ---
Subjective Subjective: Benny is more alert today. He has no specific complaints. He has apparently been up to the bathroom. He remains on Ativan. His magnesium is being replaced. He is on a total of 180 mg of diltiazem daily +100 mg of metoprolol. His heart rate is in the low 100s. He is on 1 [place] telemetry. His blood pressure is good. Objective Vital Signs and I&Os Vital Signs Date Time Temp Pulse Resp B/P B/P Pulse O2 O2 Flow FiO2 Mean Ox Delivery Rate 04/26 0829 100 124/70 04/26 0827 100 124/60 04/26 0827 100 124/70 04/26 0711 98.2 80 20 130/74 97 Room Air 04/25 2349 Room Air 04/25 2233 99.0 97 21 132/76 95 04/25 2158 92 132/82 04/25 1810 98.2 107 18 164/92 94 04/25 1612 104 126/78 04/25 1400 98.8 104 20 112/68 97 04/25 1352 98.0 104 20 100/70 98 Room Air 04/25 1200 98.6 90 20 102/60 04/25 1200 98.7 90 20 104/60 93 Room Air 04/25 1154 100 100/60 04/25 1100 100 22 100/60 04/25 1000 98.4 100 22 106/70 Intake & Output 04/26 1600 04/26 0800 04/26 0000 04/25 1600 04/25 0800 04/25 0000 Intake Total 750 600 550 Output Total 350 400 Balance 400 600 150 Intake, Oral 750 600 550 Number 0 Bowel Movements Output, Urine 350 400 Patient 179 lb 177 lb Weight Weight Bed scale Measurement Method Physical Exam: No distress HEENT exam normal Chest clear Heart irregular, moderate rate, no murmurs No peripheral edema Current Medications: Current Medications Sig/Jay Start time Last Medication Dose Route Stop Time Status Admin Apixaban 5 MG BID 04/21 2100 AC 04/26 PO 08 Aspirin Buffered 325 MG DAILY 04/22 09 AC 04/26 PO 08 Budesonide/ 2 PUF BID 04/21 2100 AC 04/26 Formoterol Fumarate INH 0827 Diltiazem HCl 60 MG 0800,1200,1600,2000 04/23 1200 AC 04/26 PO 0827 Folic Acid 1 MG DAILY 04/22 09 AC 04/26 PO 0827 Lisinopril 20 MG DAILY 04/22 0900 AC 04/26 PO 0827 Lorazepam 1 MG Q8 04/25 1400 AC 04/26 PO 0614 Lorazepam 0 Q1P PRN 04/21 1900 AC 04/25 IV 2037 Magnesium Oxide 400 MG BID 04/26 0900 AC 04/26 PO 0827 Magnesium Oxide 400 MG BID 04/25 0900 DC PO Magnesium Sulfate 1 GM Q2H 04/25 1500 DC 04/25 Dextrose/Water 100 ML IV 04/25 1859 1850 Metoprolol Succinate 100 MG DAILY 04/22 0900 AC 04/26 PO 0829 Multivitamins 1 TAB DAILY 04/22 0900 AC 04/26 Therapeutic PO 08 Senna/Docusate Sodium 2 TAB DAILY 04/24 2230 AC 04/26 PO 08 Thiamine HCl 100 MG DAILY 04/21 1915 AC 04/26 PO 0826 Results Last 48 Hrs of Labs/Mics: Laboratory Tests 04/26/18 0630: Anion Gap 9, Estimated GFR > 60, BUN/Creatinine Ratio 15.7, Magnesium 1.7 04/25/18 1145: Anion Gap 12, Estimated GFR > 60, BUN/Creatinine Ratio 15.0, Magnesium 1.4 L 04/25/18 0624: CBC w Diff NO MAN DIFF REQ, RBC 3.89 L, MCV 99.9 H, MCH 34.1 H, MCHC 34.2, RDW 13.9, MPV 9.9, Gran % 67.7, Lymphocytes % 15.9 L, Monocytes % 13.4 H, Eosinophils % 2.4, Basophils % 0.6, Absolute Granulocytes 5.2, Absolute Lymphocytes 1.2, Absolute Monocytes 1.0 H, Absolute Eosinophils 0.2, Absolute Basophils 0 Assessment/Plan Assessment/Plan Benny is doing well. His heart rate is a little faster than desired. I recommend increasing his diltiazem to 60 mg every 6 hours for a total of 240 mg daily. On discharge he can be discharged on the long-acting variety. Continue telemetry? Yes
[2018-04-26 10:00] VITALS: BP 126/70
[2018-04-26 12:00] VITALS: BP 124/70
[2018-04-26 14:24] VITALS: BP 112/62
[2018-04-26 22:03] VITALS: BP 120/74
[2018-04-27 06:20] VITALS: BP 120/80
--- NOTE | 2018-04-27 07:35 | PN- Housestaff ---
Rodrigo MONTES,[facility] 04/27/18 0734: Subjective Follow-up For: Atrial fibrillation with RVR Alcohol withdrawal Hypomagnesemia Tele-Events Since Last Visit: Atrial fibrillation heart rate in 70s-100 Subjective: Seen and examined the patient. He was alert and oriented to place however was not oriented to time. He knows the current president's name. Had an uneventful night. His fever overnight was max of 18. Patient was seen later during morning rounds walking with a walker however his gait seemed to be unsteady, might benefit from STR Review of Systems Constitutional: Reports: see HPI. Objective Last 24 Hrs of Vital Signs/I&O Vital Signs Date Time Temp Pulse Resp B/P B/P Pulse O2 O2 Flow FiO2 Mean Ox Delivery Rate 04/27 0847 120/80 04/27 0847 120/80 04/27 0846 106 120/80 04/27 06 97.5 106 21 120/80 92 04/26 2203 98.4 105 21 120/74 98 04/26 2129 98 110/56 04/26 1704 95 114/70 04/26 1600 Room Air 04/26 1424 98.2 96 20 112/62 98 Room Air 04/26 1305 106 118/68 04/26 1200 97.6 110 20 124/70 04/26 1000 98.4 100 20 126/70 Intake & Output 04/27 1600 04/27 0800 04/27 0000 Intake Total 450 Output Total Balance 450 Intake, Oral 450 Number 3 Bowel Movements Patient 189 lb Weight Physical Exam General Appearance: Alert, Cooperative Cardiovascular: irregular Lungs: Clear to Auscultation Abdomen: Normal Bowel Sounds, Soft, No Tenderness Neurological: Normal Speech Current Medications: Current Medications Sig/Jay Start time Last Medication Dose Route Stop Time Status Admin Acetaminophen 650 MG ONCE ONE 04/26 2330 DC 04/26 PO 04/26 2331 2343 Apixaban 5 MG BID 04/21 2100 AC 04/27 PO 0846 Aspirin Buffered 325 MG DAILY 04/22 09 AC 04/27 PO 0846 Budesonide/ 2 PUF BID 04/21 2100 AC 04/27 Formoterol Fumarate INH 0848 Diltiazem HCl 60 MG 0800,1200,1600,2000 04/23 1200 AC 04/27 PO 0846 Folic Acid 1 MG DAILY 04/22 09 AC 04/27 PO 0846 Lisinopril 20 MG DAILY 04/22 900 AC 04/27 PO 0847 Lorazepam 1 MG Q8 04/25 1400 AC 04/27 PO 0537 Lorazepam 0 Q1P PRN 04/21 1900 AC 04/26 IV 2257 Magnesium Oxide 400 MG BID 04/26 0900 AC 04/27 PO 0847 Metoprolol Succinate 100 MG DAILY 04/22 0900 AC 04/27 PO 0847 Multivitamins 1 TAB DAILY 04/22 0900 AC 04/27 Therapeutic PO 0847 Senna/Docusate Sodium 2 TAB DAILY 04/24 2230 AC 04/27 PO 0847 Thiamine HCl 100 MG DAILY 04/21 1915 AC 04/27 PO 0847 Last 24 Hrs of Lab/Oj Results Last 24 Hrs of Labs/Mics: Laboratory Tests 04/27/18 0615: Anion Gap 11, Estimated GFR > 60, BUN/Creatinine Ratio 13.8, Magnesium 1.5 L Assessment/Plan Assessment: The patient is a 57-year-old gentleman with past medical history of hypertension , COPD not on any home oxygen and atrial fibrillation on Eliquis status post cardioversion in 2009,2011 and 2015. The patient presented to [place] ED on after being sent in by Dr. Siegel for evaluation of atrial fibrillation with RVR. #Atrial fibrillation with rapid ventricular rate -Telemetry monitoring for any arrhythmia -On Cardizem 60mg Q6, can increase up to 90q6 -Continue metoprolol and Eliquis -Cardiology recommendations appreciated -Echocardiogram WNL #Hypomagnesemia Likely secondary to alcohol abuse -Monitor and replete #Alcohol abuse/withdrawal Patient drinks 6 packs of beer everyday last drink was around 10 PM on 04/20. On tapering dose of Ativan. -CIWA protocol max 18, on 1 mg q8 and required 3 mg IV prn -Multivitamin and Thiamine -Patient has poor insight and does not believe he has a problem. -Ativan 1mg q12 #Macrocytosis Most likely secondary to alcohol abuse -Alcohol cessation counseling #History of COPD -TR -continue symbicort #Continue aspirin, metoprolol, lisinopril Heart healthy diet/DVT prophylaxis with Eliquis and alps/full code Problem List: 1. Atrial fibrillation with RVR Pain Ratin Pain Location: na Pain Goal: Pain 4 or less Pain Plan: prn Tomorrow's Labs & Rationales: naa Car MDJess 04/27/18 0955: Attending MD Review Statement Attending Statement Attending MD Statement: examined this patient, discuss w/resident/PA/LABEL PRESS OPERATOR, agreed w/resident/PA/LABEL PRESS OPERATOR, reviewed EMR data (avail), discussed with nursing, discussed with case mgmt, reviewed images Attending Assessment/Plan: 57-year-old male past medical history of COPD, alcohol abuse who is here with acute hyperactive alcohol withdrawal delirium and rapid atrial fibrillation. At this point he is on Cardizem 60 mg every 6 hrs and his heart rate still hovers in the 100-110 range. He is using the walker but appears clearly unsteady with tremulousness. He is on an Ativan taper for the alcohol withdrawal and is down to 1 mg every 8 with when necessary doses as necessary. We'll closely follow the heart rate, he is on Eliquis and metoprolol in addition to the Cardizem and will follow up with case management and social work regarding discharge plans.
[2018-04-27 14:46] VITALS: BP 116/74
[2018-04-27] MEDS ORDERED: CARDIZEM CD240 M1 PO (14:52)
--- NOTE | 2018-04-27 15:16 | Patient Discharge Instructions ---
Discharge Instructions General Discharge Information You were seen/treated for: Atrial fibrillation with rapid ventricular rate Alcohol detoxification Special Instructions: -Please follow-up with your primary care doctor after discharge -Please follow-up with your leacher within 1 week of discharge -Please note the changes in your medication. Acute Coronary Syndrome Inclusion Criteria At DC or during hospital stay patient has or had the following: ACS DIAGNOSIS No Discharge Core Measures Meds if any: Prescribed or Continued at Discharge Meds if any: NOT Prescribed or Continued at Discharge Congestive Heart Failure Inclusion Criteria At DC or during hospital stay patient has or had the following: CHF DIAGNOSIS No Discharge Core Measures Meds if any: Prescribed or Continued at Discharge Meds if any: NOT Prescribed or Continued at Discharge Cerebrovascular accident Inclusion Criteria At DC or during hospital stay patient has or had the following: CVA/TIA Diagnosis No Discharge Core Measures Meds if any: Prescribed or Continued at Discharge Meds if any: NOT Prescribed or Continued at Discharge Venous thromboembolism Inclusion Criteria VTE Diagnosis No VTE Type NONE VTE Confirmed by (Test) NONE Discharge Core Measures - Per Current guidelines, there needs to be overlap - treatment for the first 5 days of Warfarin therapy. - If discharged on Warfarin prior to 5 days of - overlap therapy, the patient will need to be - assessed for post discharge needs including - *Post discharge parental anticoagulation - *Warfarin and/or parental anticoagulation education - *Follow up date to check INR post discharge At least 5 days overlap therapy as Inpatient No Meds if any: Prescribed or Continued at Discharge Note: Overlap Therapy is Warfarin and Anticoagulant Meds if any: NOT Prescribed or Continued at Discharge
[2018-04-27] MEDS ORDERED: ASPIRIN EC81 M1 PO (18:44)
[2018-04-27 22:31] VITALS: BP 102/70
[2018-04-28 06:58] VITALS: BP 100/66
--- NOTE | 2018-04-28 07:00 | PN- Housestaff ---
Rodrigo MONTES,[facility] 04/28/18 0700: Subjective Follow-up For: Atrial fibrillation with RVR Alcohol withdrawal Tele-Events Since Last Visit: Atrial fibrillation with heart rate ranging 70s-90s overnight with working with PT patient's heart rate went up to 170s. The morning he was between 110-120. Subjective: Seen and examined. The working with physical therapy. Does not offer any complaints. Patient was not reexamined during the morning rounds patient was anticipating discharge today and was upset. at bedside. Pt was explained the importance of staying in the hospital for 1 more day. We are going to increase his Cardizem and monitor his heart rate. Patient will continue working with PT for balance, and use walker. We are going to arrange for home nurses and physical therapy. Review of Systems Constitutional: Reports: see HPI. Objective Last 24 Hrs of Vital Signs/I&O Vital Signs Date Time Temp Pulse Resp B/P B/P Pulse O2 O2 Flow FiO2 Mean Ox Delivery Rate 04/28 1428 97.9 83 20 112/58 97 Room Air 04/28 0808 146 106/66 04/28 0806 146 106/66 04/28 0658 98.2 92 20 100/66 95 Room Air 04/27 2231 97.6 76 18 102/70 98 Room Air 04/27 2126 Room Air 04/27 2048 76 102/70 04/27 2000 84 04/27 1622 116/74 Intake & Output 04/28 1600 04/28 0800 04/28 0000 Intake Total 240 720 Output Total Balance 240 720 Intake, Oral 240 720 Number 0 Bowel Movements Patient 190 lb Weight Weight Bed scale Measurement Method Physical Exam General Appearance: Alert, Oriented X3, Cooperative Cardiovascular: irregualr Lungs: Clear to Auscultation Abdomen: Soft, No Tenderness Neurological: Normal Speech Current Medications: Current Medications Sig/Jay Start time Last Medication Dose Route Stop Time Status Admin Apixaban 5 MG BID 04/21 2100 AC 04/28 PO 08 Aspirin Buffered 325 MG DAILY 04/22 09 AC 04/28 PO 08 Budesonide/ 2 PUF BID 04/21 2100 AC 04/28 Formoterol Fumarate INH 0804 Diltiazem HCl 360 MG DAILY 04/29 09 AC PO Diltiazem HCl 90 MG ONCE ONE 04/28 1100 DC 04/28 PO 04/28 1101 1136 Diltiazem HCl 240 MG DAILY 04/28 0900 DC 04/28 PO 0805 Diltiazem HCl 60 MG 0800,1200,1600,2000 04/23 1200 DC 04/27 PO 04/28 0600 2048 Folic Acid 1 MG DAILY 04/22 0900 AC 04/28 PO 0806 Lisinopril 20 MG DAILY 04/22 09 AC 04/28 PO 0806 Lorazepam 1 MG Q12H 04/27 1800 DC 04/28 PO 0646 Lorazepam 0 Q1P PRN 04/21 1900 DC 04/26 IV 2257 Magnesium Oxide 400 MG BID 04/26 09 AC 04/28 PO 0806 Metoprolol Succinate 100 MG DAILY 04/22 09 AC 04/28 PO 0808 Multivitamins 1 TAB DAILY 04/22 09 AC 04/28 Therapeutic PO 0808 Senna/Docusate Sodium 2 TAB DAILY 04/24 2230 AC 04/28 PO 0807 Thiamine HCl 100 MG TID 04/27 2100 AC 04/28 PO 1318 Thiamine HCl 100 MG DAILY 04/21 1915 DC 04/27 PO 0847 Assessment/Plan Assessment: The patient is a 57-year-old gentleman with past medical history of hypertension , COPD not on any home oxygen and atrial fibrillation on Eliquis status post cardioversion in 2009,2011 and 2015. The patient presented to [place] ED on after being sent in by Dr. Siegel for evaluation of atrial fibrillation with RVR. #Atrial fibrillation with rapid ventricular rate -Telemetry monitoring for any arrhythmia -cardizem 360mg ER -Continue metoprolol and Eliquis -Cardiology recommendations appreciated -Echocardiogram WNL #Hypomagnesemia Likely secondary to alcohol abuse -Monitor and replete #Alcohol abuse/withdrawal Patient drinks 6 packs of beer everyday last drink was around 10 PM on 04/20. On tapering dose of Ativan. -[facility] protocol max 6 -Ativan taper complete -Patient has poor insight and does not believe he has a problem. #Macrocytosis Most likely secondary to alcohol abuse -Alcohol cessation counseling #History of COPD -TR -continue symbicort #Continue aspirin, metoprolol, lisinopril Heart healthy diet/DVT prophylaxis with Eliquis and alps/full code Problem List: 1. Alcohol abuse 2. Atrial fibrillation with RVR Pain Ratin Pain Location: na Pain Goal: Pain 4 or less Pain Plan: prn Tomorrow's Labs & Rationales: none Josep MONTESJess 04/28/18 1038: Attending MD Review Statement Attending Statement Attending MD Statement: examined this patient, discuss w/resident/PA/TAFE TEACHER, agreed w/resident/PA/TAFE TEACHER, discussed with family, reviewed EMR data (avail), discussed with nursing, discussed with case mgmt, reviewed images Attending Assessment/Plan: Patient is very upset as he wanted to go home today. He feels that all of his medical problems are chronic. He adamantly refuses rehabilitation. At this point appreciate cardiology's recommendations and we are going to continue the Eliquis. He has no known CAD so we are going to stop the aspirin and we are going to increase the Cardizem to 360 mg a day. The plan is to watch him on the increased dose of Cardizem, have him work with physical therapy and if his heart rate is okay then the plan will be discharge home in a.m. We spent a long time talking to him and his explaining all of the competing medical problems of the balance issues, alcohol withdrawal issues, stroke risk with A. fib and Eliquis and issues with rapid heart rate.
--- NOTE | 2018-04-28 09:38 | PN- Cardiology ---
Subjective Subjective: Patient is feeling better. Alert and oriented, answers my questions appropriately. In Afib with HR 80-110. Has been walking this morning with help of a rolling walker, HR remained around 100-110. Had a discussion about the role of alcohol in precipitating rapid arrhythmia, the patient agrees and is motivated to reduce his alcohol consumption. Objective Vital Signs and I&Os Vital Signs Date Time Temp Pulse Resp B/P B/P Pulse O2 O2 Flow FiO2 Mean Ox Delivery Rate 04/27 0847 120/80 04/27 0847 120/80 04/27 0846 106 120/80 04/27 0620 97.5 106 21 120/80 92 04/26 2203 98.4 105 21 120/74 98 04/26 2129 98 110/56 04/26 1704 95 114/70 04/26 1600 Room Air 04/26 1424 98.2 96 20 112/62 98 Room Air 04/26 1305 106 118/68 04/26 1200 97.6 110 20 124/70 04/26 1000 98.4 100 20 126/70 Intake & Output 04/27 1600 04/27 0800 04/27 0000 04/26 1600 04/26 0800 04/26 0000 Intake Total 450 1000 Output Total Balance 450 1000 Intake, Oral 450 1000 Number 3 Bowel Movements Patient 189 lb 179 lb Weight Physical Exam General Appearance: alert, awake Neck: supple Respiratory: normal breath sounds, no respiratory distress, lungs clear Cardiovascular: normal peripheral pulses, tachycardia, irregularly irregular Abdomen: normal bowel sounds, soft, non-tender Extremities: normal capillary refill, no edema Current Medications: Current Medications Sig/Jay Start time Last Medication Dose Route Stop Time Status Admin Acetaminophen 650 MG ONCE ONE 04/26 2330 DC 04/26 PO 04/26 2331 2343 Apixaban 5 MG BID 04/21 2100 AC 04/27 PO 0846 Aspirin Buffered 325 MG DAILY 04/22 09 AC 04/27 PO 0846 Budesonide/ 2 PUF BID 04/21 2100 AC 04/27 Formoterol Fumarate INH 0848 Diltiazem HCl 60 MG 0800,1200,1600,2000 04/23 1200 AC 04/27 PO 0846 Folic Acid 1 MG DAILY 04/22 09 AC 04/27 PO 0846 Lisinopril 20 MG DAILY 04/22 09 AC 04/27 PO 0847 Lorazepam 1 MG Q8 04/25 1400 AC 04/27 PO 0537 Lorazepam 0 Q1P PRN 04/21 1900 AC 04/26 IV 2257 Magnesium Oxide 400 MG BID 04/26 0900 AC 04/27 PO 0847 Metoprolol Succinate 100 MG DAILY 04/22 0900 AC 04/27 PO 0847 Multivitamins 1 TAB DAILY 04/22 0900 AC 04/27 Therapeutic PO 0847 Senna/Docusate Sodium 2 TAB DAILY 04/24 2230 AC 04/27 PO 0847 Thiamine HCl 100 MG DAILY 04/21 1915 AC 04/27 PO 0847 Results Last 48 Hrs of Labs/Mics: Laboratory Tests 04/27/18 0615: Anion Gap 11, Estimated GFR > 60, BUN/Creatinine Ratio 13.8, Magnesium 1.5 L 04/26/18 0630: Anion Gap 9, Estimated GFR > 60, BUN/Creatinine Ratio 15.7, Magnesium 1.7 04/25/18 1145: Anion Gap 12, Estimated GFR > 60, BUN/Creatinine Ratio 15.0, Magnesium 1.4 L Assessment/Plan Assessment/Plan Rapid atrial fibrillation in the context of alcohol consumtion. HR now well controlled with CDZ 60 mg PO qid, and metoprolol 100mg XL. Deconditioning secondary to bed rest > 1 week. Patient has started walking daily and is encouraged to continue. Anticoagulated with eliquis, however if alcohol consumption remains an issue and equilibrium remains precarious long-term, transition to coumadin or no anticoagulation may have to be considered. Continue telemetry? Yes
--- NOTE | 2018-04-28 10:12 | PN- Cardiology ---
Subjective Subjective: Patient very upset this morning, was told by someone he would be discharged yesterday. Does not make eye contact with me. Says he feels well. Has been walking without walker assistance (walker nearby for safety). HR has been well 110-120 this morning, but overall no sustained episodes > 125 bpm. Objective Vital Signs and I&Os Vital Signs Date Time Temp Pulse Resp B/P B/P Pulse O2 O2 Flow FiO2 Mean Ox Delivery Rate 04/28 0808 146 106/66 04/28 0806 146 106/66 04/28 0658 98.2 92 20 100/66 95 Room Air 04/27 2231 97.6 76 18 102/70 98 Room Air 04/27 2126 Room Air 04/27 2048 76 102/70 04/27 2000 84 04/27 1622 116/74 04/27 1446 97.4 94 16 116/74 97 Room Air 04/27 1316 98 120/80 04/27 1126 Room Air Room Air Intake & Output 04/28 1600 04/28 0800 04/28 0000 04/27 1600 04/27 0800 04/27 0000 Intake Total 240 720 450 Output Total Balance 240 720 450 Intake, Oral 240 720 450 Number 0 3 Bowel Movements Patient 190 lb 189 lb Weight Weight Bed scale Measurement Method Physical Exam General Appearance: well developed/nourished, alert, awake, anxious Neck: normal inspection, no midline tenderness Respiratory: normal breath sounds, no respiratory distress, lungs clear Cardiovascular: irregularly irregular (no murmur, no rub) Abdomen: normal bowel sounds, soft, non-tender Extremities: normal capillary refill, no edema Skin: intact, normal color, warm/dry Assessment/Plan Assessment/Plan Afib with RVR, now better controlled with CDZ 60 mg PO q 6hr and metoprolol 100 mg PO qd XL. increase CDZ to 90 mg PO qid today. Eliquis to be continued after discussion with patient and his who assure me he does not have any difficulty with balance at home. likely discharge tomorrow. Continue telemetry? Yes
[2018-04-28] MEDS ORDERED: CARDIZEM CD360 M1 PO ×2 (11:07→15:35)
[2018-04-28 14:28] VITALS: BP 112/58
[2018-04-28 22:35] VITALS: BP 110/62
[2018-04-29 07:13] VITALS: BP 118/64
--- NOTE | 2018-04-29 07:29 | Discharge Summary ---
Visit Information Visit Dates Admission Date: 04/21/18 Discharge Date: 04/29/18 Hospital Course Course Attending Physician: Dimitry Diego MD Primary Care Physician: Florentino Wagoner MD Hospital Course: The patient is a 57-year-old gentleman with past medical history of hypertension , COPD not on home oxygen, atrial fibrillation on Eliquis status post cardioversion in 2009 2011 and 2015. Patient presented to [place] ED on 04/21 after being sent in by Dr. Siegel for evaluation of elevated heart rate. EKG done in his office showed he was in atrial fibrillation with RVR. On presentation he was extremely anxious and shaky. Vitals on presentation were significant for heart rate of 180, and blood pressure of 149/100 Admission labs are significant for macrocytosis with MCV 98.3 and MCH 34.1, first set of troponins were negative and magnesium was 1.2 In the ED patient received 10 mg IV push of Cardizem and was started on Cardizem drip. He was admitted to telemetry floor for treatment and evaluation of atrial fibrillation with RVR. Patient admitted to drinking heavily mostly beer at least 6 pack. If needed it is very likely that patient went into atrial fibrillation with rapid ventricular secondary to excessive alcohol consumption. Initially we continued Cardizem drip and was later started on p.o. Cardizem. Once his heart rate became acceptable he was started on 360 mg ER Cardizem is going to be discharged on it. We continued his home dose of metoprolol 100 mg ER. Patient is currently on Eliquis 5 mg twice daily which was also continued. He was started on CIWA protocol and Ativan taper for alcohol detoxification. He was also started on thiamine, folate and multivitamin. The Ativan was tapered as per CIWA scores. He is being discharged on a multivitamin. He worked with physical therapy was seemed to be extremely unsteady on his feet initially later his balance improved and was deemed stable to be discharged home with home physical therapy and home visiting nurses. Initially patient had poor insight and did not believe that he had a drinking problem. He was extensively counseled by us and was also evaluated by social insurance analyst. He was provided with outpatient support group information for alcohol abstinence. Patient's was very emotional regarding alcohol abuse. Patient acknowledged the problem and seemed determined to quit. Patient is currently on Eliquis, with potential of alcohol abuse and disequilibrium should consider transition to Coumadin with option of reversibility. Should be pursued as an outpatient. Considering bleeding risk we are going to discontinue aspirin. Patient has been advised to follow-up with cardiology and primary care after discharge He was full code during his stay. He was started on Allergies: Coded Allergies: No Known Allergies (04/21/18) Disposition Summary Disposition Principal Diagnosis: Atrial fibrillation with RVR Additional Diagnosis: Alcohol detoxification Discharge Disposition: home health services Discharge Instructions General Discharge Information Code Status: Full Code Patient's Diet: Heart healthy Patient's Activity: As tolerated Follow-Up Instructions/Appts: Follow-up with primary care doctor and research interviewer Dr. Siegel Medications at Discharge Discharge Medications: Stop taking the following medications: Aspirin (Ecotrin*) 325 MG TABLET.DR ORAL DAILY Diltiazem Cd (Diltiazem ER) 120 MG CAP.ER.DEG ORAL DAILY Qty = 30 Continue taking these medications: Metoprolol Succinate (Metoprolol Succinate) 100 MG TAB.ER.24H 1 Tablet ORAL DAILY Qty = 90 Comments: Last Taken: 04/29/18 Time: 0800 Apixaban (Eliquis) 5 MG TABLET 1 Tablet ORAL TWICE DAILY Qty = 60 Comments: Last Taken: 04/29 Time: 0800 Lisinopril (Lisinopril) 20 MG TABLET 20 Milligram ORAL DAILY Qty = 30 Instructions: . Comments: Last Taken: 04/29/18 Time: 0800 Multivitamin (Daily Multiple Vitamin) 1 EACH TABLET 1 Tablet ORAL DAILY Budesonide/Formoterol Fumarate (Symbicort 160-4.5 Mcg Inhaler) 160 MCG-4.5 MCG/ ACTUATION HFA.AER.AD 2 Puff Inhale through mouth TWICE DAILY Qty = 10 Comments: Last Taken: 04/29/18 Time: 0800 Start taking the following new medications: Diltiazem HCl (Cardizem Cd) 360 MG CAP.ER.24H 1 Capsule ORAL DAILY Qty = 30 No Refills Instructions: . Comments: Last Taken: 04/29/18 Time: 0800 Copies To: Florentino Siegel MD, V.; Florentino Wagoner MD
--- NOTE | 2018-04-29 07:29 | PN- Housestaff ---
Rodrigo MONTES,Deedee 04/29/18 0729: Subjective Follow-up For: Atrial fib Tele-Events Since Last Visit: Atrial fibrillation Subjective: Seen and examined. Resting comfortably. Stable to be discharged home today. Review of Systems Constitutional: Reports: see HPI. Objective Last 24 Hrs of Vital Signs/I&O Vital Signs Date Time Temp Pulse Resp B/P B/P Pulse O2 O2 Flow FiO2 Mean Ox Delivery Rate 04/29 0815 118/64 04/29 0815 99 118/64 04/29 0713 98.1 99 20 118/64 95 Nasal Cannula 04/28 2235 98.1 94 20 110/62 96 Nasal 1.0L Cannula Intake & Output 04/29 1600 04/29 0800 04/29 0000 Intake Total 120 120 Output Total Balance 120 120 Intake, Oral 120 120 Patient 187 lb Weight Weight Bed scale Measurement Method Physical Exam General Appearance: Alert, Oriented X3, Cooperative Cardiovascular: irregular Lungs: Clear to Auscultation Abdomen: Normal Bowel Sounds Neurological: Normal Speech Current Medications: Current Medications Sig/Jay Start time Last Medication Dose Route Stop Time Status Admin Acetaminophen 650 MG ONCE ONE 04/28 2345 DC 04/28 PO 04/28 2346 2340 Apixaban 5 MG BID 04/21 2100 DCD 04/29 PO 0815 Aspirin Buffered 325 MG DAILY 04/22 900 DCD 04/29 PO 0815 Budesonide/ 2 PUF BID 04/21 2100 DCD 04/29 Formoterol Fumarate INH 0812 Diltiazem HCl 360 MG DAILY 04/29 900 DCD 04/29 PO 0814 Folic Acid 1 MG DAILY 04/22 900 DCD 04/29 PO 0815 Lisinopril 20 MG DAILY 04/22 900 DCD 04/29 PO 0815 Lorazepam 1 MG ONE ONE 04/28 2230 DC 04/28 PO 04/28 223 223 Magnesium Oxide 400 MG BID 04/26 900 DCD 04/29 PO 0815 Metoprolol Succinate 100 MG DAILY 04/22 900 DCD 04/29 PO 0815 Multivitamins 1 TAB DAILY 04/22 900 DCD 04/29 Therapeutic PO 0815 Senna/Docusate Sodium 2 TAB DAILY 04/24 2230 DCD 04/29 PO 0815 Thiamine HCl 100 MG TID 04/27 2100 DCD 04/29 PO 0816 Last 24 Hrs of Lab/Oj Results Last 24 Hrs of Labs/Mics: Laboratory Tests 04/29/18 0635: Magnesium 1.8 Assessment/Plan Assessment: The patient is a 57-year-old gentleman with past medical history of hypertension , COPD not on any home oxygen and atrial fibrillation on Eliquis status post cardioversion in 2009,2011 and 2015. The patient presented to [place] ED on after being sent in by Dr. Siegel for evaluation of atrial fibrillation with RVR. #Atrial fibrillation with rapid ventricular rate -Telemetry monitoring for any arrhythmia -cardizem 360mg ER -Continue metoprolol and Eliquis -Cardiology recommendations appreciated -Echocardiogram WNL #Hypomagnesemia Likely secondary to alcohol abuse -Monitor and replete #Alcohol abuse/withdrawal Patient drinks 6 packs of beer everyday last drink was around 10 PM on 04/20. On tapering dose of Ativan. -CIWA protocol max 6 -Ativan taper complete #Macrocytosis Most likely secondary to alcohol abuse -Alcohol cessation counseling #History of COPD -TRC -continue symbicort #Continue aspirin, metoprolol, lisinopril Heart healthy diet/DVT prophylaxis with Eliquis and alps/full code Problem List: 1. Atrial fibrillation with RVR Pain Ratin Pain Location: na Pain Goal: Pain 4 or less Pain Plan: prn Tomorrow's Labs & Rationales: none Jess Car MD 04/29/18 1023: Attending MD Review Statement Attending Statement Attending MD Statement: examined this patient, discuss w/resident/PA/INFORMATICA MDM DEVELOPER, agreed w/resident/PA/INFORMATICA MDM DEVELOPER, discussed with family, reviewed EMR data (avail), discussed with nursing, discussed with case mgmt, reviewed images Attending Assessment/Plan: 57-year-old male past medical history of atrial fibrillation and alcohol abuse. He's finished his Ativan taper for alcohol withdrawal and is on Cardizem CD 360 mg with Eliquis for the A. fib. The entire team spoke to the patient and his including the case checker and the social sciences department chair. He is going to go home today. He clearly understands that ongoing drinking with Eliquis and Cardizem on board could be life-threatening with rapid A. fib and risk of falls. He is going to follow-up closely with Dr. Fermín Pena as an outpatient and his PCP. He's been set up with [facility] for outpatient alcohol rehabilitation therapy.
[2018-04-29 08:15] VITALS: BP 118/64
== END 2018-04-29 10:20 | disposition home health service (06) | DRG 201 ==
LOC: ERH 15:10 → 1NO 17:26 → ERHI 17:26 → ENRESERV 17:56 → ENTRNSPT 18:27 → EDTRNSPT 18:33 → EDTRNSPTSTS 18:33 → 1NO 18:48 → CMPTRNSPT 18:59 → 1NO 04-22 12:39 → ENPENDDIS 04-29 08:57 → 1NO 04-29 10:20
PROVIDERS: Internal Medicine; Physician Assistant; Student in an Organized Health Care Education/Training Program
PROC: HZ2ZZZZ Detoxification Services for Substance Abuse Treatment (ICD-10-PCS; principal; 2018-04-21)
DX: I48.0 Paroxysmal atrial fibrillation (principal); Z79.01 Long term (current) use of anticoagulants; F10.239 Alcohol dependence with withdrawal, unspecified; Y90.0 Blood alcohol level of less than 20 mg/100 ml; E83.42 Hypomagnesemia; I10 Essential (primary) hypertension; Z87.891 Personal history of nicotine dependence; J44.9 Chronic obstructive pulmonary disease, unspecified; D75.89 Other specified diseases of blood and blood-forming organs
CPT/HCPCS: 1NP; 36415; 36592; 71046; 80307; 82436; 93005; 93010; 93306; 96374; 96375; 96376; 97112-GO; 97116-GO; 97161-GP; 97530-GO; 99291; G0480; J3490; J7508